=== PATIENT | male | born 1970 | race Caucasian/White ===

== ENCOUNTER 2021-01-30 12:41 | Inpatient (IN) | payer OTHER, SELFPAY ==
[~2021-01-30] VITALS: Ht 165.1 cm; Wt 78.0 kg
[2021-01-30] MEDS ORDERED: LevETIRAcetam 1,000 MG in DEXTROSE 5%-WATER 100 ML IV ONE (13:15)
[2021-01-30 13:45] LABS: BASOPHILS % (AUTO) 0.6 % (0.0-2.0); EOSINOPHILS % (AUTO) 0 % (1.0-6.0); HEMATOCRIT 43.4 % (41-53); HEMOGLOBIN 14.5 g/dL (13.5-17.5); LYMPHOCYTES # (AUTO) 0.4 K/uL (1.0-4.8); LYMPHOCYTES % (AUTO) 5.5 % (22.0-44.0); MEAN CORPUSCULAR HEMOGLOBIN 30.6 pg (26.0-34.0); MEAN CORPUSCULAR HGB CONC 33.3 G/dL (31.0-37.0); MEAN CORPUSCULAR VOLUME 92 fL (80-100); MONOCYTES # (AUTO) 0.2 K/uL (0.1-1.0); MONOCYTES % (AUTO) 2.8 % (2.0-9.0); NEUTROPHILS # (AUTO) 6.8 K/uL (1.8-7.7); PLATELET COUNT (AUTO) 122 K/uL (150-450); RED BLOOD CELL COUNT(AUTO) 4.72 MIL/uL (4.50-5.90); RED CELL DISTRIBUTION WIDTH 13.3 % (11.5-14.5)
[2021-01-30] MEDS ORDERED: IVERMECTIN 3 MG TABLET PO ONE (13:45)
[2021-01-30] MEDS ORDERED: ZINC SULFATE 220 MG CAPSULE PO ONE (13:45)
[2021-01-30] MEDS ORDERED: BUDESONIDE 180 MCG/INH INHALER [120] IH ONE (13:45)
[2021-01-30] MEDS ORDERED: AZITHROMYCIN 500 MG/NS 250 ML IV ONE (13:45)
[2021-01-30] MEDS ORDERED: DEXAMETHASONE SOD PHOS 4 MG/ML 5 ML VIAL IVP ONE (13:45)
[2021-01-30] MEDS ORDERED: DEXAMETHASONE SOD PHOS 4 MG/ML 5 ML VIAL IM ONE (13:45)
[2021-01-30 13:49] LABS: NEUTROPHILS % (AUTO) 91.1 % (40.0-70.0)
[2021-01-30 14:08] LABS: ANION GAP 11 mmol/L (8-16); CARBON DIOXIDE 25 mmol/L (22-29); CHLORIDE 100 mmol/L (98-107); CREATININE 1.05 mg/dL (0.60-1.30); GLOMERULAR FILTR. RATE CALC > 60 mL/min (>60); GLUCOSE,RANDOM 163 mg/dL (70-110); POTASSIUM 3.9 mmol/L (3.5-5.1); SODIUM SERUM 136 mmol/L (136-145); UREA NITROGEN, BLOOD 12 mg/dL (7-18)
[2021-01-30 14:23] LABS: B-TYPE NATRIURETIC PEPTIDE 55 pg/mL (0-100)
[2021-01-30 14:46] LABS: ABG A-A DIFF O2 87.9 mmHg (10-20.0); ABG BASE EXCESS -2.8 mmol/L (-2.0-3.0); ABG CARBOXYHEMOGLOBIN 0.1 % (0.0-1.5); ABG HCO3 22.8 mmol/L (22.0-26.0); ABG METHEMOGLOBIN 0.1 % (0.0-1.5); ABG OXYGEN CONTENT 19.9 mL/dL (15.0-23.0); ABG OXYGEN SATURATION 94.8 % (95.0-98.0); ABG OXYHEMOGLOBIN 94.6 % (94.0-100.0); ABG PCO2 33 mmHg (35-45); ABG PH 7.427 (7.35-7.450); O2 DEVICE,BLOOD GAS CANNULA (ROOM AIR); SITE, BLOOD GAS RT RADIAL; SOURCE, BLOOD GAS ARTERIAL; TEMPERATURE, FAHRENHEIT, BG 99.2 FAHREN (96.0-98.6)
[2021-01-30 15:01] LABS: LACTIC ACID 2.1 mmol/L (0.4-2.0)
[2021-01-30 15:09] LABS: ALANINE AMINOTRANSFERASE 34 U/L (12-78); ALBUMIN 3.3 g/dL (3.4-5.0); ALKALINE PHOSPHATASE 53 U/L (46-116); ASPARTATE AMINOTRANSFERASE 27 U/L (15-37); BILIRUBIN,TOTAL 0.4 mg/dL (0.1-1.0); CREATINE KINASE, TOTAL ONLY 220 U/L (39-308); TOTAL PROTEIN, SERUM 7.6 g/dL (6.4-8.2)
[2021-01-30 15:31] LABS: COVID AG,FIA SOURCE NASOPHARYNGEAL
[2021-01-30 15:44] LABS: D-DIMER 0.44 mg/L FEU (0.00-0.50); INR 1.1 (0.9-1.1); PROTHROMBIN TIME 11.4 SEC (9.4-11.6)
[2021-01-30 16:06] LABS: C-REACTIVE PROTEIN QUANT 16.41 mg/dL (0.00-0.30)
[2021-01-30] MEDS ORDERED: 0.9% SODIUM CHLORIDE 10 ML SYRINGE IVP PRN (16:45)
[2021-01-30] MEDS ORDERED: ACETAMINOPHEN 325 MG TABLET PO PRN (16:45)
[2021-01-30 16:51] LABS: FERRITIN 1402 ng/mL (26-388)
[2021-01-30 17:00] LABS: APPEARANCE,URINE CLEAR (CLEAR); BILIRUBIN,URINE NEGATIVE (NEGATIVE); GLUCOSE, URINE (UA) NEGATIVE (NEGATIVE); KETONES,URINE 40 mg/dL (NEGATIVE); LEUKOCYTE ESTERASE ,URINE NEGATIVE (NEGATIVE); NITRATE,URINE NEGATIVE (NEGATIVE); OCCULT BLOOD,URINE TRACE (NEGATIVE); PH,URINE 6.5 (5.0-8.0); PROTEIN,URINE POS 1+ (NEGATIVE); UROBILINOGEN,URINE 0.2 mg/dL (<=1.0)
[2021-01-30 17:24] LABS: BACTERIA,URINE Rare /HPF (None Seen); SQUAMOUS EPITHELIAL CELL,UR Rare /LPF (None Seen); WBC,URINE 0-2 /HPF (0-5)
[2021-01-30] MEDS ORDERED: REMDESIVIR 200 MG in SODIUM CHLORIDE 0.9% 250 ML IV ONE (19:00)
[2021-01-30] MEDS ORDERED: ALBUTEROL SULFATE HFA 90 MCG/PUFF 8 GM INHALER IH PRN (19:00)
[2021-01-30] MEDS: DOCUSATE SODIUM 100 MG CAPSULE PO SCH (21:00)
[2021-01-31] MEDS: HEPARIN SODIUM,PORCINE 5,000 UNITS/ML VIAL SQ SCH ×4 (00:10→23:35)
[2021-01-31] MEDS: BENZONATATE 100 MG CAPSULE PO PRN ×2 (00:10→20:59)
[2021-01-31] MEDS: FAMOTIDINE 20 MG TABLET PO SCH (08:18)
[2021-01-31] MEDS: DEXAMETHASONE 4 MG TABLET PO SCH (08:18)
[2021-01-31] MEDS: DOCUSATE SODIUM 100 MG CAPSULE PO SCH ×2 (08:18→20:47)
[2021-01-31 10:20] VITALS: BP 125/74
[2021-01-31 13:19] VITALS: BP 116/76
[2021-01-31 16:25] VITALS: BP 130/75
[2021-01-31] MEDS ORDERED: SODIUM CHLORIDE 0.9% 250 ML IV ONE (18:15)
[2021-01-31] MEDS: REMDESIVIR 100 MG in SODIUM CHLORIDE 0.9% 250 ML IV SCH (18:29)
[2021-01-31 19:48] VITALS: BP 118/76
[2021-02-01] VITALS (7 sets, daily range): BP systolic 105–126; BP diastolic 70–82
[2021-02-01] MEDS: FAMOTIDINE 20 MG TABLET PO SCH (09:09)
[2021-02-01] MEDS: DOCUSATE SODIUM 100 MG CAPSULE PO SCH ×2 (09:09→19:49)
[2021-02-01] MEDS: HEPARIN SODIUM,PORCINE 5,000 UNITS/ML VIAL SQ SCH ×2 (09:09→16:29)
[2021-02-01] MEDS: DEXAMETHASONE 4 MG TABLET PO SCH (09:09)
[2021-02-01 15:23] LABS: ALANINE AMINOTRANSFERASE 39 U/L (12-78); ALBUMIN 2.9 g/dL (3.4-5.0); ALKALINE PHOSPHATASE 55 U/L (46-116); ANION GAP 10 mmol/L (8-16); ASPARTATE AMINOTRANSFERASE 29 U/L (15-37); BILIRUBIN,TOTAL 0.3 mg/dL (0.1-1.0); CALCIUM, TOTAL 8.6 mg/dL (8.8-10.5); CARBON DIOXIDE 23 mmol/L (22-29); CHLORIDE 101 mmol/L (98-107); GLOMERULAR FILTR. RATE CALC > 60 mL/min (>60); GLUCOSE,RANDOM 247 mg/dL (70-110); POTASSIUM 4.4 mmol/L (3.5-5.1); SODIUM SERUM 134 mmol/L (136-145); TOTAL PROTEIN, SERUM 7.2 g/dL (6.4-8.2); UREA NITROGEN, BLOOD 21 mg/dL (7-18)
[2021-02-01] MEDS: REMDESIVIR 100 MG in SODIUM CHLORIDE 0.9% 250 ML IV SCH (18:13)
[2021-02-01] MEDS ORDERED: SODIUM CHLORIDE 0.9% 500 ML IV ONE (19:45)
[2021-02-02] MEDS: HEPARIN SODIUM,PORCINE 5,000 UNITS/ML VIAL SQ SCH ×3 (00:08→16:02)
[2021-02-02 03:58] VITALS: BP 115/73
[2021-02-02 07:07] VITALS: BP 127/62
[2021-02-02] MEDS: DEXAMETHASONE 4 MG TABLET PO SCH (08:33)
[2021-02-02] MEDS: DOCUSATE SODIUM 100 MG CAPSULE PO SCH ×2 (08:33→21:51)
[2021-02-02] MEDS: FAMOTIDINE 20 MG TABLET PO SCH (08:33)
[2021-02-02 08:51] LABS: ALANINE AMINOTRANSFERASE 43 U/L (12-78); ALBUMIN 2.8 g/dL (3.4-5.0); ALKALINE PHOSPHATASE 62 U/L (46-116); ANION GAP 12 mmol/L (8-16); ASPARTATE AMINOTRANSFERASE 29 U/L (15-37); BILIRUBIN,TOTAL 0.3 mg/dL (0.1-1.0); CALCIUM, TOTAL 8.2 mg/dL (8.8-10.5); CARBON DIOXIDE 26 mmol/L (22-29); CHLORIDE 102 mmol/L (98-107); CREATININE 0.78 mg/dL (0.60-1.30); GLOMERULAR FILTR. RATE CALC > 60 mL/min (>60); GLUCOSE,RANDOM 136 mg/dL (70-110); POTASSIUM 4.4 mmol/L (3.5-5.1); SODIUM SERUM 140 mmol/L (136-145); TOTAL PROTEIN, SERUM 7.1 g/dL (6.4-8.2); UREA NITROGEN, BLOOD 23 mg/dL (7-18)
[2021-02-02 11:35] VITALS: BP 124/68
[2021-02-02 14:29] VITALS: BP 126/78
[2021-02-02] MEDS: REMDESIVIR 100 MG in SODIUM CHLORIDE 0.9% 250 ML IV SCH (18:35)
[2021-02-02] MEDS: AZITHROMYCIN 500 MG/NS 250 ML IV SCH (19:00)
[2021-02-02 19:39] VITALS: BP 119/72
[2021-02-02] MEDS: CHOLECALCIFEROL (VIT D3) 2,000 UNITS [50 MCG] TABLET PO SCH (21:00)
[2021-02-03] VITALS: BP 119/74
[2021-02-03] MEDS: HEPARIN SODIUM,PORCINE 5,000 UNITS/ML VIAL SQ SCH ×3 (00:26→16:45)
[2021-02-03 04:00] VITALS: BP 110/64
[2021-02-03 08:00] VITALS: BP 111/69
[2021-02-03] MEDS: DOCUSATE SODIUM 100 MG CAPSULE PO SCH ×2 (10:04→20:53)
[2021-02-03] MEDS: CHOLECALCIFEROL (VIT D3) 2,000 UNITS [50 MCG] TABLET PO SCH (10:05)
[2021-02-03] MEDS: FAMOTIDINE 20 MG TABLET PO SCH (10:05)
[2021-02-03] MEDS: DEXAMETHASONE 2 MG TABLET PO SCH (10:06)
[2021-02-03 10:36] LABS: ALANINE AMINOTRANSFERASE 44 U/L (12-78); ALBUMIN 2.8 g/dL (3.4-5.0); ALKALINE PHOSPHATASE 56 U/L (46-116); ANION GAP 13 mmol/L (8-16); ASPARTATE AMINOTRANSFERASE 24 U/L (15-37); BILIRUBIN,TOTAL 0.5 mg/dL (0.1-1.0); CALCIUM, TOTAL 8.3 mg/dL (8.8-10.5); CARBON DIOXIDE 24 mmol/L (22-29); CHLORIDE 101 mmol/L (98-107); CREATININE 0.83 mg/dL (0.60-1.30); GLOMERULAR FILTR. RATE CALC > 60 mL/min (>60); GLUCOSE,RANDOM 152 mg/dL (70-110); POTASSIUM 4.2 mmol/L (3.5-5.1); SODIUM SERUM 138 mmol/L (136-145); TOTAL PROTEIN, SERUM 6.7 g/dL (6.4-8.2); UREA NITROGEN, BLOOD 20 mg/dL (7-18)
[2021-02-03 12:00] VITALS: BP 116/68
[2021-02-03 16:00] VITALS: BP 106/64
[2021-02-03 20:01] VITALS: BP 107/68
[2021-02-03] MEDS: AZITHROMYCIN 500 MG/NS 250 ML IV SCH (20:53)
[2021-02-03] MEDS: REMDESIVIR 100 MG in SODIUM CHLORIDE 0.9% 250 ML IV SCH (20:53)
[2021-02-03] MEDS ORDERED: SODIUM CHLORIDE 0.9% 250 ML IV ONE (21:41)
[2021-02-03] MEDS: ETHYL ALCOHOL 62% ANTISEPTIC NASAL INHALANT 0.6 ML AMPUL NASAL SCH (23:00)
[2021-02-04 00:07] VITALS: BP 104/68
[2021-02-04] MEDS: HEPARIN SODIUM,PORCINE 5,000 UNITS/ML VIAL SQ SCH ×3 (00:19→17:47)
[2021-02-04 04:02] VITALS: BP 90/64
[2021-02-04 05:54] LABS: ANION GAP 7 mmol/L (8-16); C-REACTIVE PROTEIN QUANT 9.02 mg/dL (0.00-0.30); CALCIUM, TOTAL 8.2 mg/dL (8.8-10.5); CARBON DIOXIDE 24 mmol/L (22-29); CHLORIDE 103 mmol/L (98-107); CREATININE 0.72 mg/dL (0.60-1.30); GLOMERULAR FILTR. RATE CALC > 60 mL/min (>60); GLUCOSE,RANDOM 140 mg/dL (70-110); POTASSIUM 4.1 mmol/L (3.5-5.1); SODIUM SERUM 134 mmol/L (136-145); UREA NITROGEN, BLOOD 19 mg/dL (7-18)
[2021-02-04 08:02] VITALS: BP 102/59
[2021-02-04] MEDS: CHOLECALCIFEROL (VIT D3) 2,000 UNITS [50 MCG] TABLET PO SCH (08:12)
[2021-02-04] MEDS: ETHYL ALCOHOL 62% ANTISEPTIC NASAL INHALANT 0.6 ML AMPUL NASAL SCH ×2 (08:12→20:04)
[2021-02-04] MEDS: FAMOTIDINE 20 MG TABLET PO SCH (08:12)
[2021-02-04] MEDS: DOCUSATE SODIUM 100 MG CAPSULE PO SCH ×2 (08:12→20:04)
[2021-02-04] MEDS: DEXAMETHASONE 2 MG TABLET PO SCH (09:21)
[2021-02-04 12:00] VITALS: BP 114/63
[2021-02-04 16:00] VITALS: BP 117/63
[2021-02-04 20:00] VITALS: BP 96/60
[2021-02-05] VITALS: BP 99/69
[2021-02-05] MEDS: HEPARIN SODIUM,PORCINE 5,000 UNITS/ML VIAL SQ SCH ×3 (00:30→17:03)
[2021-02-05 04:00] VITALS: BP 102/74
[2021-02-05 08:00] VITALS: BP 99/59
[2021-02-05] MEDS: CHOLECALCIFEROL (VIT D3) 2,000 UNITS [50 MCG] TABLET PO SCH (08:20)
[2021-02-05] MEDS: DEXAMETHASONE 2 MG TABLET PO SCH (08:21)
[2021-02-05] MEDS: ETHYL ALCOHOL 62% ANTISEPTIC NASAL INHALANT 0.6 ML AMPUL NASAL SCH ×2 (08:21→21:53)
[2021-02-05] MEDS: FAMOTIDINE 20 MG TABLET PO SCH (08:21)
[2021-02-05] MEDS: DOCUSATE SODIUM 100 MG CAPSULE PO SCH ×2 (08:21→21:53)
[2021-02-05 12:00] VITALS: BP 107/60
[2021-02-05 16:00] VITALS: BP 119/66
[2021-02-05 20:01] VITALS: BP 128/69
[2021-02-06 00:04] VITALS: BP 106/51
[2021-02-06] MEDS: HEPARIN SODIUM,PORCINE 5,000 UNITS/ML VIAL SQ SCH ×3 (00:15→15:15)
[2021-02-06 04:01] VITALS: BP 96/59
[2021-02-06 05:35] LABS: BASOPHILS % (AUTO) 0.3 % (0.0-2.0); EOSINOPHILS % (AUTO) 0.1 % (1.0-6.0); HEMATOCRIT 46.7 % (41-53); HEMOGLOBIN 15.8 g/dL (13.5-17.5); LYMPHOCYTES # (AUTO) 0.6 K/uL (1.0-4.8); LYMPHOCYTES % (AUTO) 4.4 % (22.0-44.0); MEAN CORPUSCULAR HEMOGLOBIN 30.8 pg (26.0-34.0); MEAN CORPUSCULAR HGB CONC 33.8 G/dL (31.0-37.0); MEAN CORPUSCULAR VOLUME 91 fL (80-100); MONOCYTES # (AUTO) 0.8 K/uL (0.1-1.0); MONOCYTES % (AUTO) 5.7 % (2.0-9.0); NEUTROPHILS # (AUTO) 12.9 K/uL (1.8-7.7); PLATELET COUNT (AUTO) 350 K/uL (150-450); RED BLOOD CELL COUNT(AUTO) 5.12 MIL/uL (4.50-5.90); RED CELL DISTRIBUTION WIDTH 13.2 % (11.5-14.5)
[2021-02-06 05:42] LABS: NEUTROPHILS % (AUTO) 89.5 % (40.0-70.0)
[2021-02-06 05:53] LABS: ALANINE AMINOTRANSFERASE 34 U/L (12-78); ALBUMIN 2.7 g/dL (3.4-5.0); ALKALINE PHOSPHATASE 64 U/L (46-116); ANION GAP 10 mmol/L (8-16); ASPARTATE AMINOTRANSFERASE 18 U/L (15-37); BILIRUBIN,TOTAL 0.7 mg/dL (0.1-1.0); CALCIUM, TOTAL 8.9 mg/dL (8.8-10.5); CARBON DIOXIDE 24 mmol/L (22-29); CHLORIDE 101 mmol/L (98-107); CREATININE 0.83 mg/dL (0.60-1.30); GLOMERULAR FILTR. RATE CALC > 60 mL/min (>60); GLUCOSE,RANDOM 121 mg/dL (70-110); POTASSIUM 4.6 mmol/L (3.5-5.1); SODIUM SERUM 135 mmol/L (136-145); UREA NITROGEN, BLOOD 25 mg/dL (7-18)
[2021-02-06 08:00] VITALS: BP 103/63
[2021-02-06] MEDS: FAMOTIDINE 20 MG TABLET PO SCH (09:30)
[2021-02-06] MEDS: ETHYL ALCOHOL 62% ANTISEPTIC NASAL INHALANT 0.6 ML AMPUL NASAL SCH ×2 (09:30→21:23)
[2021-02-06] MEDS: DEXAMETHASONE 2 MG TABLET PO SCH (09:31)
[2021-02-06] MEDS: CHOLECALCIFEROL (VIT D3) 2,000 UNITS [50 MCG] TABLET PO SCH (09:32)
[2021-02-06] MEDS: DOCUSATE SODIUM 100 MG CAPSULE PO SCH ×2 (09:33→21:23)
[2021-02-06 12:00] VITALS: BP 98/47
[2021-02-06 16:00] VITALS: BP 110/62
[2021-02-06 20:01] VITALS: BP 107/70
[2021-02-07 00:01] VITALS: BP 93/66
[2021-02-07] MEDS: HEPARIN SODIUM,PORCINE 5,000 UNITS/ML VIAL SQ SCH ×3 (00:08→15:13)
[2021-02-07 04:02] VITALS: BP 120/92
[2021-02-07 08:00] VITALS: BP 86/90
[2021-02-07] MEDS: FAMOTIDINE 20 MG TABLET PO SCH (08:58)
[2021-02-07] MEDS: DEXAMETHASONE 2 MG TABLET PO SCH (08:58)
[2021-02-07] MEDS: CHOLECALCIFEROL (VIT D3) 2,000 UNITS [50 MCG] TABLET PO SCH (08:58)
[2021-02-07] MEDS: DOCUSATE SODIUM 100 MG CAPSULE PO SCH ×2 (08:58→21:00)
[2021-02-07] MEDS: ETHYL ALCOHOL 62% ANTISEPTIC NASAL INHALANT 0.6 ML AMPUL NASAL SCH ×2 (08:59→21:07)
[2021-02-07 12:00] VITALS: BP 105/57
[2021-02-07] MEDS ORDERED: SODIUM CHLORIDE 0.9% 500 ML IV ONE (14:59)
[2021-02-07 16:00] VITALS: BP 100/49
[2021-02-07 20:00] VITALS: BP 94/65
[2021-02-08] VITALS: BP 89/53
[2021-02-08] MEDS: HEPARIN SODIUM,PORCINE 5,000 UNITS/ML VIAL SQ SCH ×3 (00:32→16:19)
[2021-02-08 04:00] VITALS: BP 99/60
[2021-02-08 08:00] VITALS: BP 105/61
[2021-02-08] MEDS: DOCUSATE SODIUM 100 MG CAPSULE PO SCH ×2 (08:17→20:20)
[2021-02-08] MEDS: ETHYL ALCOHOL 62% ANTISEPTIC NASAL INHALANT 0.6 ML AMPUL NASAL SCH ×2 (08:17→20:19)
[2021-02-08] MEDS: FAMOTIDINE 20 MG TABLET PO SCH (08:17)
[2021-02-08] MEDS: DEXAMETHASONE 2 MG TABLET PO SCH (08:17)
[2021-02-08] MEDS: CHOLECALCIFEROL (VIT D3) 2,000 UNITS [50 MCG] TABLET PO SCH (08:18)
[2021-02-08] MEDS ORDERED: ETOMIDATE 2 MG/ML 10 ML VIAL ONE (10:37)
[2021-02-08] MEDS ORDERED: ETOMIDATE 2 MG/ML 10 ML VIAL IVP ONE (10:45)
[2021-02-08] MEDS ORDERED: ROCURONIUM BROMIDE 10 MG/ML 5 ML VIAL IVP ONE (10:45)
[2021-02-08] MEDS: FentaNYL CIT 1000MCG/0.9% NACL 100 ML IV PRN ×2 (10:54→15:36)
[2021-02-08] MEDS: PROPOFOL 1000 MG/ISO-OSM 100 ML IV PRN ×3 (10:54→20:19)
[2021-02-08 12:00] VITALS: BP 105/63
[2021-02-08] MEDS ORDERED: CISATRACURIUM BESYLATE 2 MG/ML 10 ML VIAL IVP ONE (13:15)
[2021-02-08] MEDS ORDERED: MIDAZOLAM HCL 100 MG in SODIUM CHLORIDE 0.9% 180 ML IV PRN (13:15)
[2021-02-08] MEDS ORDERED: RINGERS SOLUTION,LACTATED 1,000 ML IV SCH (14:11)
[2021-02-08] MEDS ORDERED: RINGERS SOLUTION,LACTATED 1,000 ML IV ONE (14:15)
[2021-02-08] MEDS: CISATRACURIUM BESYLATE 100 MG in DEXTROSE 5%-WATER 240 ML IV PRN ×2 (14:40→20:53)
[2021-02-08 14:58] LABS: ANION GAP 6 mmol/L (8-16); C-REACTIVE PROTEIN QUANT 9.55 mg/dL (0.00-0.30); CALCIUM, TOTAL 8.4 mg/dL (8.8-10.5); CARBON DIOXIDE 26 mmol/L (22-29); CHLORIDE 98 mmol/L (98-107); CREATININE 1.12 mg/dL (0.60-1.30); GLOMERULAR FILTR. RATE CALC > 60 mL/min (>60); GLUCOSE,RANDOM 197 mg/dL (70-110); POTASSIUM 4.4 mmol/L (3.5-5.1); SODIUM SERUM 130 mmol/L (136-145); UREA NITROGEN, BLOOD 26 mg/dL (7-18)
[2021-02-08 16:00] VITALS: BP 89/57
[2021-02-08] MEDS ORDERED: TOCILIZUMAB 600 MG in SODIUM CHLORIDE 0.9% 70 ML IV ONE (16:00)
[2021-02-08 16:12] LABS: ABG A-A DIFF O2 573.2 mmHg (10-20.0); ABG BASE EXCESS -0.9 mmol/L (-2.0-3.0); ABG CARBOXYHEMOGLOBIN 0.5 % (0.0-1.5); ABG HCO3 22.6 mmol/L (22.0-26.0); ABG METHEMOGLOBIN 0.3 % (0.0-1.5); ABG OXYGEN CONTENT 20.7 mL/dL (15.0-23.0); ABG OXYHEMOGLOBIN 93.2 % (94.0-100.0); ABG PCO2 59 mmHg (35-45); ABG PH 7.263 (7.35-7.450); ABG TOTAL HEMOGLOBIN 15.8 G/dL (12.0-18.0); PO2, ARTERIAL BG 80.1 mmHg (84.0-92.0); SOURCE, BLOOD GAS ARTERIAL
[2021-02-08 16:13] LABS: O2 DEVICE,BLOOD GAS VENTILATOR (ROOM AIR); PEEP,BG 10 cm H2O; SITE, BLOOD GAS RT RADIAL; VT, ABG 400 ml
[2021-02-08 20:01] VITALS: BP 84/54
[2021-02-08] MEDS: NOREPINEPHRINE 4 MG/D5%-WATER 250 ML IV PRN (20:54)
[2021-02-09 00:03] VITALS: BP 109/76
[2021-02-09] MEDS ORDERED: SODIUM CHLORIDE 0.9% 250 ML IV ONE ×2 (00:24→20:57)
[2021-02-09] MEDS: HEPARIN SODIUM,PORCINE 5,000 UNITS/ML VIAL SQ SCH ×3 (00:26→16:02)
[2021-02-09] MEDS: FentaNYL CIT 1000MCG/0.9% NACL 100 ML IV PRN ×2 (02:52→14:35)
[2021-02-09 04:02] VITALS: BP 104/68
[2021-02-09 05:14] LABS: BASOPHILS % (AUTO) 0.2 % (0.0-2.0); EOSINOPHILS % (AUTO) 0.7 % (1.0-6.0); HEMOGLOBIN 14.9 g/dL (13.5-17.5); LYMPHOCYTES # (AUTO) 0.8 K/uL (1.0-4.8); LYMPHOCYTES % (AUTO) 4.1 % (22.0-44.0); MEAN CORPUSCULAR HEMOGLOBIN 30.6 pg (26.0-34.0); MEAN CORPUSCULAR HGB CONC 33.1 G/dL (31.0-37.0); MEAN CORPUSCULAR VOLUME 92 fL (80-100); MONOCYTES # (AUTO) 0.7 K/uL (0.1-1.0); MONOCYTES % (AUTO) 3.4 % (2.0-9.0); NEUTROPHILS # (AUTO) 17.5 K/uL (1.8-7.7); PLATELET COUNT (AUTO) 306 K/uL (150-450); RED BLOOD CELL COUNT(AUTO) 4.87 MIL/uL (4.50-5.90); RED CELL DISTRIBUTION WIDTH 13.3 % (11.5-14.5)
[2021-02-09 05:42] LABS: ALANINE AMINOTRANSFERASE 24 U/L (12-78); ALKALINE PHOSPHATASE 82 U/L (46-116); ANION GAP 5 mmol/L (8-16); ASPARTATE AMINOTRANSFERASE 22 U/L (15-37); BILIRUBIN,TOTAL 0.6 mg/dL (0.1-1.0); C-REACTIVE PROTEIN QUANT 19.28 mg/dL (0.00-0.30); CARBON DIOXIDE 26 mmol/L (22-29); CHLORIDE 99 mmol/L (98-107); CREATININE 0.82 mg/dL (0.60-1.30); GLOMERULAR FILTR. RATE CALC > 60 mL/min (>60); GLUCOSE,RANDOM 194 mg/dL (70-110); POTASSIUM 4.6 mmol/L (3.5-5.1); SODIUM SERUM 130 mmol/L (136-145); TOTAL PROTEIN, SERUM 6.3 g/dL (6.4-8.2); UREA NITROGEN, BLOOD 19 mg/dL (7-18)
[2021-02-09 05:54] LABS: NEUTROPHILS % (AUTO) 91.6 % (40.0-70.0)
[2021-02-09] MEDS: PROPOFOL 1000 MG/ISO-OSM 100 ML IV PRN ×3 (06:35→23:43)
[2021-02-09] MEDS: CISATRACURIUM BESYLATE 100 MG in DEXTROSE 5%-WATER 240 ML IV PRN ×2 (07:34→19:41)
[2021-02-09 08:00] VITALS: BP 102/70
[2021-02-09] MEDS: DEXAMETHASONE SOD PHOS 4 MG/ML VIAL IVP SCH (08:34)
[2021-02-09] MEDS: DOCUSATE SODIUM 100 MG CAPSULE PO SCH ×2 (08:35→21:02)
[2021-02-09] MEDS: ETHYL ALCOHOL 62% ANTISEPTIC NASAL INHALANT 0.6 ML AMPUL NASAL SCH ×2 (08:35→21:02)
[2021-02-09] MEDS: CHOLECALCIFEROL (VIT D3) 2,000 UNITS [50 MCG] TABLET PO SCH (08:35)
[2021-02-09] MEDS: FAMOTIDINE 10 MG/ML 2 ML VIAL IVP SCH (08:35)
[2021-02-09] MEDS ORDERED: RINGERS SOLUTION,LACTATED 1,000 ML IV ONE ×2 (10:15→11:30)
[2021-02-09 12:00] VITALS: BP 105/56
[2021-02-09] MEDS: THIAMINE 100 MG/ML 2 ML VIAL IVP SCH (12:27)
[2021-02-09 16:00] VITALS: BP 116/65
[2021-02-09 20:01] VITALS: BP 115/72
[2021-02-10 00:06] VITALS: BP 100/67
[2021-02-10] MEDS: ACETAMINOPHEN 325 MG TABLET PO PRN ×2 (00:19→15:15)
[2021-02-10] MEDS: HEPARIN SODIUM,PORCINE 5,000 UNITS/ML VIAL SQ SCH ×3 (00:20→15:15)
[2021-02-10] MEDS: FentaNYL CIT 1000MCG/0.9% NACL 100 ML IV PRN ×2 (00:20→10:59)
[2021-02-10 04:03] VITALS: BP 99/66
[2021-02-10 04:55] LABS: BASOPHILS % (AUTO) 0.7 % (0.0-2.0); EOSINOPHILS % (AUTO) 0.1 % (1.0-6.0); HEMATOCRIT 47.6 % (41-53); HEMOGLOBIN 15.6 g/dL (13.5-17.5); LYMPHOCYTES # (AUTO) 0.5 K/uL (1.0-4.8); LYMPHOCYTES % (AUTO) 2.3 % (22.0-44.0); MEAN CORPUSCULAR HEMOGLOBIN 30.2 pg (26.0-34.0); MEAN CORPUSCULAR HGB CONC 32.7 G/dL (31.0-37.0); MEAN CORPUSCULAR VOLUME 92 fL (80-100); MONOCYTES # (AUTO) 0.9 K/uL (0.1-1.0); MONOCYTES % (AUTO) 3.8 % (2.0-9.0); NEUTROPHILS # (AUTO) 21.6 K/uL (1.8-7.7); PLATELET COUNT (AUTO) 273 K/uL (150-450); RED BLOOD CELL COUNT(AUTO) 5.15 MIL/uL (4.50-5.90); RED CELL DISTRIBUTION WIDTH 13.1 % (11.5-14.5)
[2021-02-10 05:06] LABS: NEUTROPHILS % (AUTO) 93.1 % (40.0-70.0)
[2021-02-10 05:15] LABS: ANION GAP 0 mmol/L (8-16); C-REACTIVE PROTEIN QUANT 10.71 mg/dL (0.00-0.30); CALCIUM, TOTAL 8.3 mg/dL (8.8-10.5); CARBON DIOXIDE 30 mmol/L (22-29); CHLORIDE 96 mmol/L (98-107); CREATININE 0.73 mg/dL (0.60-1.30); GLOMERULAR FILTR. RATE CALC > 60 mL/min (>60); GLUCOSE,RANDOM 213 mg/dL (70-110); POTASSIUM 5.2 mmol/L (3.5-5.1); SODIUM SERUM 126 mmol/L (136-145); UREA NITROGEN, BLOOD 23 mg/dL (7-18)
[2021-02-10] MEDS: PROPOFOL 1000 MG/ISO-OSM 100 ML IV PRN ×2 (05:48→15:16)
[2021-02-10] MEDS: NOREPINEPHRINE 4 MG/D5%-WATER 250 ML IV PRN (05:49)
[2021-02-10] MEDS: CISATRACURIUM BESYLATE 100 MG in DEXTROSE 5%-WATER 240 ML IV PRN ×2 (06:56→18:22)
[2021-02-10 08:00] VITALS: BP 102/62
[2021-02-10] MEDS: DOCUSATE SODIUM 100 MG CAPSULE PO SCH ×2 (10:24→22:12)
[2021-02-10] MEDS: CHOLECALCIFEROL (VIT D3) 2,000 UNITS [50 MCG] TABLET PO SCH (10:24)
[2021-02-10] MEDS: THIAMINE 100 MG/ML 2 ML VIAL IVP SCH (10:24)
[2021-02-10] MEDS: FAMOTIDINE 10 MG/ML 2 ML VIAL IVP SCH (10:24)
[2021-02-10] MEDS: DEXAMETHASONE SOD PHOS 4 MG/ML VIAL IVP SCH (10:25)
[2021-02-10] MEDS: MULTIVITAMINS, THERAPEUTIC 15 ML UDCUP NG SCH (10:26)
[2021-02-10] MEDS: ETHYL ALCOHOL 62% ANTISEPTIC NASAL INHALANT 0.6 ML AMPUL NASAL SCH ×2 (10:26→22:14)
[2021-02-10 12:00] VITALS: BP 132/88
[2021-02-10 16:00] VITALS: BP 102/62
[2021-02-11] MEDS: HEPARIN SODIUM,PORCINE 5,000 UNITS/ML VIAL SQ SCH ×3 (00:01→15:35)
[2021-02-11 00:53] VITALS: BP 99/65
[2021-02-11 04:38] VITALS: BP 121/77
[2021-02-11 06:00] LABS: BASOPHILS % (AUTO) 0.4 % (0.0-2.0); EOSINOPHILS % (AUTO) 0.3 % (1.0-6.0); HEMATOCRIT 47.4 % (41-53); HEMOGLOBIN 15.4 g/dL (13.5-17.5); LYMPHOCYTES # (AUTO) 0.7 K/uL (1.0-4.8); MEAN CORPUSCULAR HEMOGLOBIN 29.9 pg (26.0-34.0); MEAN CORPUSCULAR HGB CONC 32.5 G/dL (31.0-37.0); MEAN CORPUSCULAR VOLUME 92 fL (80-100); MONOCYTES # (AUTO) 1.4 K/uL (0.1-1.0); MONOCYTES % (AUTO) 5.9 % (2.0-9.0); NEUTROPHILS # (AUTO) 21.2 K/uL (1.8-7.7); PLATELET COUNT (AUTO) 206 K/uL (150-450); RED BLOOD CELL COUNT(AUTO) 5.16 MIL/uL (4.50-5.90); RED CELL DISTRIBUTION WIDTH 13.3 % (11.5-14.5)
[2021-02-11 06:02] LABS: APPEARANCE,URINE TURBID (CLEAR); BILIRUBIN,URINE NEGATIVE (NEGATIVE); GLUCOSE, URINE (UA) 100 mg/dL (NEGATIVE); KETONES,URINE NEGATIVE (NEGATIVE); LEUKOCYTE ESTERASE ,URINE NEGATIVE (NEGATIVE); NITRATE,URINE NEGATIVE (NEGATIVE); OCCULT BLOOD,URINE NEGATIVE (NEGATIVE); PH,URINE 6.5 (5.0-8.0); PROTEIN,URINE NEGATIVE (NEGATIVE)
[2021-02-11 06:17] LABS: ANION GAP 2 mmol/L (8-16); CALCIUM, TOTAL 8.3 mg/dL (8.8-10.5); CARBON DIOXIDE 31 mmol/L (22-29); CHLORIDE 95 mmol/L (98-107); CREATININE 0.68 mg/dL (0.60-1.30); GLOMERULAR FILTR. RATE CALC > 60 mL/min (>60); GLUCOSE,RANDOM 181 mg/dL (70-110); POTASSIUM 5.2 mmol/L (3.5-5.1); SODIUM SERUM 128 mmol/L (136-145); UREA NITROGEN, BLOOD 19 mg/dL (7-18)
[2021-02-11 06:25] LABS: NEUTROPHILS % (AUTO) 90.4 % (40.0-70.0)
[2021-02-11 06:41] LABS: BACTERIA,URINE Few /HPF (None Seen); RBC,URINE 0-2 /HPF (0-2); TRIPLE PHOSPHATE CRYSTAL,UR Few /LPF (None Seen); URIC ACID CRYSTALS,URINE Few /LPF (None Seen); WBC,URINE 0-2 /HPF (0-5)
[2021-02-11] MEDS: CISATRACURIUM BESYLATE 100 MG in DEXTROSE 5%-WATER 240 ML IV PRN ×3 (07:31→18:32)
[2021-02-11 08:00] VITALS: BP 117/79
[2021-02-11] MEDS: THIAMINE 100 MG/ML 2 ML VIAL IVP SCH (09:23)
[2021-02-11] MEDS: FAMOTIDINE 10 MG/ML 2 ML VIAL IVP SCH (09:23)
[2021-02-11] MEDS: DEXAMETHASONE SOD PHOS 4 MG/ML VIAL IVP SCH (09:24)
[2021-02-11] MEDS: DOCUSATE SODIUM 100 MG CAPSULE PO SCH ×2 (09:24→21:39)
[2021-02-11] MEDS: CHOLECALCIFEROL (VIT D3) 2,000 UNITS [50 MCG] TABLET PO SCH (09:24)
[2021-02-11] MEDS: ETHYL ALCOHOL 62% ANTISEPTIC NASAL INHALANT 0.6 ML AMPUL NASAL SCH ×2 (09:24→21:38)
[2021-02-11] MEDS: MULTIVITAMINS, THERAPEUTIC 15 ML UDCUP NG SCH (09:25)
[2021-02-11] MEDS: FentaNYL CIT 1000MCG/0.9% NACL 100 ML IV PRN ×2 (09:43→17:59)
[2021-02-11] MEDS: NOREPINEPHRINE 4 MG/D5%-WATER 250 ML IV PRN (10:50)
[2021-02-11] MEDS: PROPOFOL 1000 MG/ISO-OSM 100 ML IV PRN (12:51)
[2021-02-11 13:59] LABS: ABG A-A DIFF O2 330.5 mmHg (10-20.0); ABG BASE EXCESS 7.5 mmol/L (-2.0-3.0); ABG CARBOXYHEMOGLOBIN 0.7 % (0.0-1.5); ABG HCO3 30.3 mmol/L (22.0-26.0); ABG METHEMOGLOBIN 0.3 % (0.0-1.5); ABG OXYGEN CONTENT 18.5 mL/dL (15.0-23.0); ABG OXYGEN SATURATION 87.4 % (95.0-98.0); ABG OXYHEMOGLOBIN 86.5 % (94.0-100.0); ABG PCO2 43 mmHg (35-45); ABG PH 7.474 (7.35-7.450); ABG TOTAL HEMOGLOBIN 15.3 G/dL (12.0-18.0); SOURCE, BLOOD GAS ARTERIAL; TEMPERATURE, FAHRENHEIT, BG 99.3 FAHREN (96.0-98.6)
[2021-02-11 14:00] LABS: O2 DEVICE,BLOOD GAS VENTILATOR (ROOM AIR); SITE, BLOOD GAS LFT RADIAL
[2021-02-11 14:01] LABS: INSPIRATORY TIME, BG 0.8 SEC; PEEP,BG 10 cm H2O; SPONTANEOUS VT, BG 550 ml; VENT MODE, BG Press. Control Vent (ROOM AIR)
[2021-02-11 16:00] VITALS: BP 99/66
[2021-02-11] MEDS: CefTRIAXone SODIUM 2 GM in DEXTROSE 5%-WATER 50 ML IV SCH (16:08)
[2021-02-11] MEDS ORDERED: SODIUM CHLORIDE 0.9% 250 ML IV ONE ×2 (17:24→21:02)
[2021-02-11 20:00] VITALS: BP 141/100
[2021-02-11] MEDS ORDERED: SODIUM CHLORIDE 0.9% 500 ML IV ONE (21:03)
[2021-02-11] MEDS: ACETAMINOPHEN 325 MG TABLET PO PRN (21:39)
[2021-02-12] VITALS: BP 129/88
[2021-02-12] MEDS: HEPARIN SODIUM,PORCINE 5,000 UNITS/ML VIAL SQ SCH ×4 (00:19→23:57)
[2021-02-12] MEDS: PROPOFOL 1000 MG/ISO-OSM 100 ML IV PRN ×6 (00:20→23:56)
[2021-02-12] MEDS: CISATRACURIUM BESYLATE 100 MG in DEXTROSE 5%-WATER 240 ML IV PRN ×5 (00:21→23:55)
[2021-02-12] MEDS: NOREPINEPHRINE 4 MG/D5%-WATER 250 ML IV PRN (00:22)
[2021-02-12 04:00] VITALS: BP 123/90
[2021-02-12] MEDS: FentaNYL CIT 1000MCG/0.9% NACL 100 ML IV PRN ×3 (04:35→23:57)
[2021-02-12 05:13] LABS: BASOPHILS % (AUTO) 0.2 % (0.0-2.0); EOSINOPHILS % (AUTO) 0.1 % (1.0-6.0); HEMATOCRIT 44.8 % (41-53); HEMOGLOBIN 14.7 g/dL (13.5-17.5); LYMPHOCYTES # (AUTO) 0.6 K/uL (1.0-4.8); LYMPHOCYTES % (AUTO) 3.3 % (22.0-44.0); MEAN CORPUSCULAR HEMOGLOBIN 30.1 pg (26.0-34.0); MEAN CORPUSCULAR HGB CONC 32.8 G/dL (31.0-37.0); MEAN CORPUSCULAR VOLUME 92 fL (80-100); MONOCYTES # (AUTO) 1.2 K/uL (0.1-1.0); MONOCYTES % (AUTO) 6.2 % (2.0-9.0); NEUTROPHILS # (AUTO) 17.1 K/uL (1.8-7.7); PLATELET COUNT (AUTO) 217 K/uL (150-450); RED BLOOD CELL COUNT(AUTO) 4.88 MIL/uL (4.50-5.90); RED CELL DISTRIBUTION WIDTH 13.4 % (11.5-14.5)
[2021-02-12 05:21] LABS: NEUTROPHILS % (AUTO) 90.2 % (40.0-70.0)
[2021-02-12 05:25] LABS: ANION GAP 1 mmol/L (8-16); CALCIUM, TOTAL 7.9 mg/dL (8.8-10.5); CARBON DIOXIDE 34 mmol/L (22-29); CHLORIDE 96 mmol/L (98-107); CREATININE 0.66 mg/dL (0.60-1.30); GLOMERULAR FILTR. RATE CALC > 60 mL/min (>60); GLUCOSE,RANDOM 205 mg/dL (70-110); PHOSPHORUS 3.3 mg/dL (2.5-4.9); POTASSIUM 5.3 mmol/L (3.5-5.1); SODIUM SERUM 131 mmol/L (136-145); UREA NITROGEN, BLOOD 20 mg/dL (7-18)
[2021-02-12 08:00] VITALS: BP 131/81
[2021-02-12] MEDS: MULTIVITAMINS, THERAPEUTIC 15 ML UDCUP NG SCH (08:51)
[2021-02-12] MEDS: DOCUSATE SODIUM 100 MG CAPSULE PO SCH ×2 (08:52→20:15)
[2021-02-12] MEDS: FAMOTIDINE 10 MG/ML 2 ML VIAL IVP SCH (08:52)
[2021-02-12] MEDS: ETHYL ALCOHOL 62% ANTISEPTIC NASAL INHALANT 0.6 ML AMPUL NASAL SCH ×2 (08:52→20:15)
[2021-02-12] MEDS: THIAMINE 100 MG/ML 2 ML VIAL IVP SCH (08:52)
[2021-02-12] MEDS: DEXAMETHASONE SOD PHOS 4 MG/ML VIAL IVP SCH (08:53)
[2021-02-12] MEDS: CHOLECALCIFEROL (VIT D3) 2,000 UNITS [50 MCG] TABLET PO SCH (08:53)
[2021-02-12 12:00] VITALS: BP 126/94
[2021-02-12] MEDS: AZITHROMYCIN 500 MG/NS 250 ML IV SCH (14:43)
[2021-02-12 16:00] VITALS: BP 117/76
[2021-02-12] MEDS: CefTRIAXone SODIUM 2 GM in DEXTROSE 5%-WATER 50 ML IV SCH (16:55)
[2021-02-12 20:00] VITALS: BP 108/65
[2021-02-12] MEDS ORDERED: SODIUM CHLORIDE 0.9% 250 ML IV ONE (23:05)
[2021-02-13] VITALS: BP 101/50
[2021-02-13 04:00] VITALS: BP 145/81
[2021-02-13 05:19] LABS: BASOPHILS % (AUTO) 0.1 % (0.0-2.0); EOSINOPHILS % (AUTO) 0.5 % (1.0-6.0); HEMATOCRIT 41.8 % (41-53); HEMOGLOBIN 13.8 g/dL (13.5-17.5); LYMPHOCYTES # (AUTO) 0.6 K/uL (1.0-4.8); LYMPHOCYTES % (AUTO) 3.3 % (22.0-44.0); MEAN CORPUSCULAR HEMOGLOBIN 30.4 pg (26.0-34.0); MEAN CORPUSCULAR VOLUME 92 fL (80-100); MONOCYTES # (AUTO) 1.3 K/uL (0.1-1.0); NEUTROPHILS # (AUTO) 14.8 K/uL (1.8-7.7); PLATELET COUNT (AUTO) 174 K/uL (150-450); RED BLOOD CELL COUNT(AUTO) 4.54 MIL/uL (4.50-5.90); RED CELL DISTRIBUTION WIDTH 13.3 % (11.5-14.5)
[2021-02-13 05:30] LABS: NEUTROPHILS % (AUTO) 88.1 % (40.0-70.0)
[2021-02-13 05:33] LABS: ANION GAP 1 mmol/L (8-16); CALCIUM, TOTAL 7.7 mg/dL (8.8-10.5); CARBON DIOXIDE 35 mmol/L (22-29); CHLORIDE 97 mmol/L (98-107); GLOMERULAR FILTR. RATE CALC > 60 mL/min (>60); GLUCOSE,RANDOM 163 mg/dL (70-110); POTASSIUM 4.8 mmol/L (3.5-5.1); SODIUM SERUM 133 mmol/L (136-145); UREA NITROGEN, BLOOD 23 mg/dL (7-18)
[2021-02-13] MEDS: PROPOFOL 1000 MG/ISO-OSM 100 ML IV PRN ×5 (05:40→23:40)
[2021-02-13 06:14] LABS: PLATELET MORPHOLOGY COMMENT GIANT PLTS PRESENT
[2021-02-13 08:00] VITALS: BP 130/84
[2021-02-13] MEDS: CISATRACURIUM BESYLATE 100 MG in DEXTROSE 5%-WATER 240 ML IV PRN ×2 (08:09→16:43)
[2021-02-13] MEDS: HEPARIN SODIUM,PORCINE 5,000 UNITS/ML VIAL SQ SCH ×2 (09:22→15:21)
[2021-02-13] MEDS: DEXAMETHASONE SOD PHOS 4 MG/ML VIAL IVP SCH (09:22)
[2021-02-13] MEDS: ETHYL ALCOHOL 62% ANTISEPTIC NASAL INHALANT 0.6 ML AMPUL NASAL SCH ×2 (09:22→21:18)
[2021-02-13] MEDS: THIAMINE 100 MG/ML 2 ML VIAL IVP SCH (09:22)
[2021-02-13] MEDS: FAMOTIDINE 10 MG/ML 2 ML VIAL IVP SCH (09:22)
[2021-02-13] MEDS: CHOLECALCIFEROL (VIT D3) 2,000 UNITS [50 MCG] TABLET PO SCH (09:23)
[2021-02-13] MEDS: DOCUSATE SODIUM 100 MG CAPSULE PO SCH ×2 (09:23→21:18)
[2021-02-13] MEDS: MULTIVITAMINS, THERAPEUTIC 15 ML UDCUP NG SCH (09:23)
[2021-02-13] MEDS: FentaNYL CIT 1000MCG/0.9% NACL 100 ML IV PRN ×2 (09:25→21:18)
[2021-02-13 12:00] VITALS: BP 146/90
[2021-02-13] MEDS: ACETAMINOPHEN 325 MG TABLET PO PRN ×2 (14:21→22:42)
[2021-02-13] MEDS: AZITHROMYCIN 500 MG/NS 250 ML IV SCH (14:21)
[2021-02-13] MEDS: CefTRIAXone SODIUM 2 GM in DEXTROSE 5%-WATER 50 ML IV SCH (15:20)
[2021-02-13 16:00] VITALS: BP 117/75
[2021-02-13 18:06] LABS: S PNEUMO SOURCE Urine; STREP PNEUMONIAE AG URINE Negative (Negative)
[2021-02-13 20:00] VITALS: BP 114/70
[2021-02-13] MEDS ORDERED: *CLINICAL-RX DOSING [ENTER DRUG IN COMMENTS] CLINICAL ONE (20:00)
[2021-02-13 20:06] LABS: LEGIONELLA PNEUMO AG URINE Negative (Negative)
[2021-02-13] MEDS: ENOXAPARIN SODIUM 40 MG/0.4 ML PF SYRINGE SQ SCH (21:18)
[2021-02-13] MEDS ORDERED: SODIUM CHLORIDE 0.9% 250 ML IV ONE (22:54)
[2021-02-14] VITALS: BP 125/89
[2021-02-14] MEDS: CISATRACURIUM BESYLATE 100 MG in DEXTROSE 5%-WATER 240 ML IV PRN ×4 (00:08→18:18)
[2021-02-14 04:00] VITALS: BP 132/83
[2021-02-14] MEDS: PROPOFOL 1000 MG/ISO-OSM 100 ML IV PRN ×4 (04:57→20:22)
[2021-02-14 05:12] LABS: BASOPHILS % (AUTO) 0.1 % (0.0-2.0); EOSINOPHILS % (AUTO) 0.3 % (1.0-6.0); HEMATOCRIT 41.9 % (41-53); HEMOGLOBIN 13.7 g/dL (13.5-17.5); LYMPHOCYTES # (AUTO) 0.8 K/uL (1.0-4.8); LYMPHOCYTES % (AUTO) 4.2 % (22.0-44.0); MEAN CORPUSCULAR HEMOGLOBIN 30.4 pg (26.0-34.0); MEAN CORPUSCULAR HGB CONC 32.6 G/dL (31.0-37.0); MEAN CORPUSCULAR VOLUME 93 fL (80-100); MONOCYTES # (AUTO) 1.5 K/uL (0.1-1.0); MONOCYTES % (AUTO) 8.1 % (2.0-9.0); NEUTROPHILS # (AUTO) 15.9 K/uL (1.8-7.7); PLATELET COUNT (AUTO) 183 K/uL (150-450); RED CELL DISTRIBUTION WIDTH 13.5 % (11.5-14.5)
[2021-02-14 05:22] LABS: NEUTROPHILS % (AUTO) 87.3 % (40.0-70.0)
[2021-02-14 05:33] LABS: ALANINE AMINOTRANSFERASE 92 U/L (12-78); ALBUMIN 2.6 g/dL (3.4-5.0); ALKALINE PHOSPHATASE 90 U/L (46-116); ANION GAP 0 mmol/L (8-16); ASPARTATE AMINOTRANSFERASE 49 U/L (15-37); BILIRUBIN,TOTAL 0.9 mg/dL (0.1-1.0); C-REACTIVE PROTEIN QUANT 0.38 mg/dL (0.00-0.30); CALCIUM, TOTAL 7.6 mg/dL (8.8-10.5); CARBON DIOXIDE 35 mmol/L (22-29); CHLORIDE 96 mmol/L (98-107); CREATININE 0.58 mg/dL (0.60-1.30); GLOMERULAR FILTR. RATE CALC > 60 mL/min (>60); GLUCOSE,RANDOM 188 mg/dL (70-110); POTASSIUM 4.5 mmol/L (3.5-5.1); SODIUM SERUM 131 mmol/L (136-145); TOTAL PROTEIN, SERUM 5.7 g/dL (6.4-8.2); UREA NITROGEN, BLOOD 24 mg/dL (7-18)
[2021-02-14 06:50] LABS: PLATELET MORPHOLOGY COMMENT LARGE PLTS PRESENT
[2021-02-14] MEDS: FentaNYL CIT 1000MCG/0.9% NACL 100 ML IV PRN ×2 (07:16→16:45)
[2021-02-14 08:00] VITALS: BP 112/76
[2021-02-14] MEDS: ENOXAPARIN SODIUM 40 MG/0.4 ML PF SYRINGE SQ SCH ×2 (09:48→20:18)
[2021-02-14] MEDS: DEXAMETHASONE SOD PHOS 4 MG/ML VIAL IVP SCH (09:48)
[2021-02-14] MEDS: DOCUSATE SODIUM 100 MG CAPSULE PO SCH ×2 (09:48→20:18)
[2021-02-14] MEDS: MULTIVITAMINS, THERAPEUTIC 15 ML UDCUP NG SCH (09:49)
[2021-02-14] MEDS: CHOLECALCIFEROL (VIT D3) 2,000 UNITS [50 MCG] TABLET PO SCH (09:49)
[2021-02-14] MEDS: THIAMINE 100 MG/ML 2 ML VIAL IVP SCH (09:50)
[2021-02-14] MEDS: ETHYL ALCOHOL 62% ANTISEPTIC NASAL INHALANT 0.6 ML AMPUL NASAL SCH ×2 (09:50→20:18)
[2021-02-14] MEDS: FAMOTIDINE 10 MG/ML 2 ML VIAL IVP SCH (09:51)
[2021-02-14 12:00] VITALS: BP 111/65
[2021-02-14] MEDS: AZITHROMYCIN 500 MG/NS 250 ML IV SCH (14:07)
[2021-02-14] MEDS: CefTRIAXone SODIUM 2 GM in DEXTROSE 5%-WATER 50 ML IV SCH (15:20)
[2021-02-14 16:00] VITALS: BP 97/56
[2021-02-14 20:00] VITALS: BP 94/57
[2021-02-14] MEDS: ACETAMINOPHEN 325 MG TABLET PO PRN (20:18)
[2021-02-14] MEDS ORDERED: SODIUM CHLORIDE 0.9% 250 ML IV ONE (20:20)
[2021-02-14 21:31] LABS: ABG A-A DIFF O2 288.6 mmHg (10-20.0); ABG BASE EXCESS 4.3 mmol/L (-2.0-3.0); ABG CARBOXYHEMOGLOBIN 0.8 % (0.0-1.5); ABG HCO3 27.8 mmol/L (22.0-26.0); ABG METHEMOGLOBIN 0.3 % (0.0-1.5); ABG OXYGEN CONTENT 16.7 mL/dL (15.0-23.0); ABG OXYGEN SATURATION 89.6 % (95.0-98.0); ABG OXYHEMOGLOBIN 88.6 % (94.0-100.0); ABG PCO2 42 mmHg (35-45); ABG PH 7.447 (7.35-7.450); ABG TOTAL HEMOGLOBIN 13.4 G/dL (12.0-18.0); PO2, ARTERIAL BG 56.2 mmHg (84.0-92.0); SOURCE, BLOOD GAS ARTERIAL; TEMPERATURE, FAHRENHEIT, BG 99.4 FAHREN (96.0-98.6)
[2021-02-14 21:33] LABS: O2 DEVICE,BLOOD GAS VENTILATOR (ROOM AIR); PEEP,BG 10 cm H2O; SITE, BLOOD GAS RT RADIAL; SPONTANEOUS VT, BG 517 ml; VENT MODE, BG Press. Control Vent (ROOM AIR)
[2021-02-15] VITALS: BP 130/78
[2021-02-15] MEDS: CISATRACURIUM BESYLATE 100 MG in DEXTROSE 5%-WATER 240 ML IV PRN ×4 (00:41→20:09)
[2021-02-15] MEDS: PROPOFOL 1000 MG/ISO-OSM 100 ML IV PRN ×5 (01:45→20:11)
[2021-02-15] MEDS: FentaNYL CIT 1000MCG/0.9% NACL 100 ML IV PRN ×3 (03:47→20:08)
[2021-02-15 04:00] VITALS: BP 122/77
[2021-02-15 05:02] LABS: BASOPHILS % (AUTO) 0.3 % (0.0-2.0); EOSINOPHILS % (AUTO) 0.5 % (1.0-6.0); HEMATOCRIT 39.6 % (41-53); HEMOGLOBIN 12.9 g/dL (13.5-17.5); LYMPHOCYTES # (AUTO) 0.9 K/uL (1.0-4.8); LYMPHOCYTES % (AUTO) 6.6 % (22.0-44.0); MEAN CORPUSCULAR HGB CONC 32.5 G/dL (31.0-37.0); MEAN CORPUSCULAR VOLUME 92 fL (80-100); MONOCYTES # (AUTO) 0.8 K/uL (0.1-1.0); NEUTROPHILS # (AUTO) 11.8 K/uL (1.8-7.7); PLATELET COUNT (AUTO) 146 K/uL (150-450); RED CELL DISTRIBUTION WIDTH 13.4 % (11.5-14.5)
[2021-02-15 05:19] LABS: ALANINE AMINOTRANSFERASE 100 U/L (12-78); ALBUMIN 2.6 g/dL (3.4-5.0); ALKALINE PHOSPHATASE 77 U/L (46-116); ANION GAP 5 mmol/L (8-16); ASPARTATE AMINOTRANSFERASE 41 U/L (15-37); BILIRUBIN,TOTAL 0.7 mg/dL (0.1-1.0); C-REACTIVE PROTEIN QUANT 0.17 mg/dL (0.00-0.30); CARBON DIOXIDE 35 mmol/L (22-29); CHLORIDE 98 mmol/L (98-107); CREATININE 0.62 mg/dL (0.60-1.30); GLOMERULAR FILTR. RATE CALC > 60 mL/min (>60); GLUCOSE,RANDOM 134 mg/dL (70-110); POTASSIUM 3.8 mmol/L (3.5-5.1); SODIUM SERUM 138 mmol/L (136-145); TOTAL PROTEIN, SERUM 5.4 g/dL (6.4-8.2); UREA NITROGEN, BLOOD 21 mg/dL (7-18)
[2021-02-15 05:35] LABS: NEUTROPHILS % (AUTO) 86.6 % (40.0-70.0)
[2021-02-15 08:00] VITALS: BP 160/103
[2021-02-15] MEDS: DEXAMETHASONE SOD PHOS 4 MG/ML VIAL IVP SCH (08:51)
[2021-02-15] MEDS: FAMOTIDINE 10 MG/ML 2 ML VIAL IVP SCH (08:52)
[2021-02-15] MEDS: ETHYL ALCOHOL 62% ANTISEPTIC NASAL INHALANT 0.6 ML AMPUL NASAL SCH ×2 (08:53→22:29)
[2021-02-15] MEDS: THIAMINE 100 MG/ML 2 ML VIAL IVP SCH (08:53)
[2021-02-15] MEDS: ENOXAPARIN SODIUM 40 MG/0.4 ML PF SYRINGE SQ SCH (08:54)
[2021-02-15] MEDS: MULTIVITAMINS, THERAPEUTIC 15 ML UDCUP NG SCH (08:54)
[2021-02-15] MEDS: DOCUSATE SODIUM 100 MG CAPSULE PO SCH ×2 (08:55→22:29)
[2021-02-15] MEDS: CHOLECALCIFEROL (VIT D3) 2,000 UNITS [50 MCG] TABLET PO SCH (08:55)
[2021-02-15 12:00] VITALS: BP 146/101
[2021-02-15] MEDS: AZITHROMYCIN 500 MG/NS 250 ML IV SCH (14:16)
[2021-02-15 16:00] VITALS: BP 128/82
[2021-02-15] MEDS: CefTRIAXone SODIUM 2 GM in DEXTROSE 5%-WATER 50 ML IV SCH (17:35)
[2021-02-15 20:03] VITALS: BP 109/65
[2021-02-15 21:55] LABS: ABG A-A DIFF O2 244.6 mmHg (10-20.0); ABG BASE EXCESS 4.2 mmol/L (-2.0-3.0); ABG CARBOXYHEMOGLOBIN 0.7 % (0.0-1.5); ABG HCO3 26.8 mmol/L (22.0-26.0); ABG METHEMOGLOBIN 0.3 % (0.0-1.5); ABG OXYGEN SATURATION 94.6 % (95.0-98.0); ABG OXYHEMOGLOBIN 93.7 % (94.0-100.0); ABG PCO2 60 mmHg (35-45); ABG PH 7.324 (7.35-7.450); ABG TOTAL HEMOGLOBIN 14.4 G/dL (12.0-18.0); SOURCE, BLOOD GAS ARTERIAL; TEMPERATURE, FAHRENHEIT, BG 98.8 FAHREN (96.0-98.6)
[2021-02-15 21:56] LABS: O2 DEVICE,BLOOD GAS VENTILATOR (ROOM AIR); PEEP,BG 10 cm H2O; SITE, BLOOD GAS RT RADIAL; VENT MODE, BG Press. Control Vent (ROOM AIR)
[2021-02-15] MEDS: ENOXAPARIN SODIUM 100 MG/ML PF SYRINGE SQ SCH (22:29)
[2021-02-16 00:04] VITALS: BP 134/82
[2021-02-16] MEDS: PROPOFOL 1000 MG/ISO-OSM 100 ML IV PRN ×5 (01:38→20:48)
[2021-02-16] MEDS: LACTULOSE 20 GM/30 ML SOLUTION UDCUP PO PRN ×2 (01:52→20:49)
[2021-02-16 04:03] VITALS: BP 155/96
[2021-02-16] MEDS: CISATRACURIUM BESYLATE 100 MG in DEXTROSE 5%-WATER 240 ML IV PRN ×3 (04:22→15:26)
[2021-02-16 07:46] LABS: BAND NEUTROPHILS % (MANUAL) 0 % (0-5)
[2021-02-16 07:50] LABS: HEMATOCRIT 40.3 % (41-53); HEMOGLOBIN 13.3 g/dL (13.5-17.5); MEAN CORPUSCULAR HEMOGLOBIN 30.5 pg (26.0-34.0); MEAN CORPUSCULAR VOLUME 92 fL (80-100); PLATELET COUNT (AUTO) 135 K/uL (150-450); RED BLOOD CELL COUNT(AUTO) 4.36 MIL/uL (4.50-5.90); RED CELL DISTRIBUTION WIDTH 13.5 % (11.5-14.5)
[2021-02-16 07:58] LABS: ANION GAP 4 mmol/L (8-16); CALCIUM, TOTAL 8.2 mg/dL (8.8-10.5); CARBON DIOXIDE 31 mmol/L (22-29); CHLORIDE 99 mmol/L (98-107); CREATININE 0.62 mg/dL (0.60-1.30); GLOMERULAR FILTR. RATE CALC > 60 mL/min (>60); GLUCOSE,RANDOM 151 mg/dL (70-110); POTASSIUM 4.1 mmol/L (3.5-5.1); SODIUM SERUM 134 mmol/L (136-145); UREA NITROGEN, BLOOD 25 mg/dL (7-18)
[2021-02-16 08:00] VITALS: BP 129/83
[2021-02-16 08:21] LABS: LYMPHOCYTES % (MANUAL) 28 % (22-44); MONOCYTES % (MANUAL) 1 % (2-9); SEGMENTED NEUTROPHILS % 71 % (40-70)
[2021-02-16] MEDS: CHOLECALCIFEROL (VIT D3) 2,000 UNITS [50 MCG] TABLET PO SCH (08:25)
[2021-02-16] MEDS: DEXAMETHASONE SOD PHOS 4 MG/ML VIAL IVP SCH (08:25)
[2021-02-16] MEDS: FAMOTIDINE 10 MG/ML 2 ML VIAL IVP SCH (08:25)
[2021-02-16] MEDS: MULTIVITAMINS, THERAPEUTIC 15 ML UDCUP NG SCH (08:25)
[2021-02-16] MEDS: THIAMINE 100 MG/ML 2 ML VIAL IVP SCH (08:25)
[2021-02-16] MEDS: DOCUSATE SODIUM 100 MG CAPSULE PO SCH ×2 (08:26→20:49)
[2021-02-16] MEDS: ENOXAPARIN SODIUM 100 MG/ML PF SYRINGE SQ SCH ×2 (08:26→20:48)
[2021-02-16] MEDS: ETHYL ALCOHOL 62% ANTISEPTIC NASAL INHALANT 0.6 ML AMPUL NASAL SCH ×2 (08:26→20:48)
[2021-02-16] MEDS: FentaNYL CIT 1000MCG/0.9% NACL 100 ML IV PRN ×2 (08:57→18:47)
[2021-02-16 12:00] VITALS: BP 122/85
[2021-02-16] MEDS: AZITHROMYCIN 500 MG/NS 250 ML IV SCH (14:01)
[2021-02-16 16:00] VITALS: BP 97/67
[2021-02-16 20:01] VITALS: BP 106/68
[2021-02-16] MEDS ORDERED: SODIUM CHLORIDE 0.9% 250 ML IV ONE (20:46)
[2021-02-17 00:03] VITALS: BP 135/93
[2021-02-17] MEDS: CISATRACURIUM BESYLATE 100 MG in DEXTROSE 5%-WATER 240 ML IV PRN ×2 (00:10→06:18)
[2021-02-17 00:19] LABS: ABG A-A DIFF O2 245.2 mmHg (10-20.0); ABG BASE EXCESS 5.2 mmol/L (-2.0-3.0); ABG CARBOXYHEMOGLOBIN 0.8 % (0.0-1.5); ABG HCO3 28.6 mmol/L (22.0-26.0); ABG METHEMOGLOBIN 0.3 % (0.0-1.5); ABG OXYGEN CONTENT 18.9 mL/dL (15.0-23.0); ABG OXYGEN SATURATION 97.3 % (95.0-98.0); ABG OXYHEMOGLOBIN 96.2 % (94.0-100.0); ABG PCO2 45 mmHg (35-45); ABG PH 7.437 (7.35-7.450); ABG TOTAL HEMOGLOBIN 13.9 G/dL (12.0-18.0); PO2, ARTERIAL BG 96.8 mmHg (84.0-92.0); SOURCE, BLOOD GAS ARTERIAL; TEMPERATURE, FAHRENHEIT, BG 99.1 FAHREN (96.0-98.6)
[2021-02-17 00:20] LABS: O2 DEVICE,BLOOD GAS VENTILATOR (ROOM AIR); SITE, BLOOD GAS LFT BRACHIAL; VENT MODE, BG PC (ROOM AIR); VT, ABG 473 ml
[2021-02-17 00:21] LABS: PEEP,BG 10 cm H2O; SPONTANEOUS VT, BG 474 ml
[2021-02-17] MEDS: PROPOFOL 1000 MG/ISO-OSM 100 ML IV PRN ×5 (02:07→22:07)
[2021-02-17 04:02] VITALS: BP 88/57
[2021-02-17] MEDS: FentaNYL CIT 1000MCG/0.9% NACL 100 ML IV PRN ×3 (06:47→17:18)
[2021-02-17 08:00] VITALS: BP 138/93
[2021-02-17] MEDS: CHOLECALCIFEROL (VIT D3) 2,000 UNITS [50 MCG] TABLET PO SCH (08:33)
[2021-02-17] MEDS: DOCUSATE SODIUM 100 MG CAPSULE PO SCH ×2 (08:33→22:01)
[2021-02-17] MEDS: FAMOTIDINE 10 MG/ML 2 ML VIAL IVP SCH (08:33)
[2021-02-17] MEDS: DEXAMETHASONE SOD PHOS 4 MG/ML VIAL IVP SCH (08:33)
[2021-02-17] MEDS: THIAMINE 100 MG/ML 2 ML VIAL IVP SCH (08:34)
[2021-02-17] MEDS: ETHYL ALCOHOL 62% ANTISEPTIC NASAL INHALANT 0.6 ML AMPUL NASAL SCH ×2 (08:39→22:01)
[2021-02-17] MEDS: MULTIVITAMINS, THERAPEUTIC 15 ML UDCUP NG SCH (08:40)
[2021-02-17] MEDS: ENOXAPARIN SODIUM 100 MG/ML PF SYRINGE SQ SCH ×2 (08:40→22:04)
[2021-02-17 12:00] VITALS: BP 93/66
[2021-02-17] MEDS ORDERED: RAPID SEQUENCE KIT [RSI] 1 EACH KIT MISC ONE (13:28)
[2021-02-17 16:00] VITALS: BP 109/73
[2021-02-17 19:01] LABS: GLUCOSE,POINT OF CARE 149 MG/DL (70-110)
[2021-02-17 20:00] VITALS: BP 141/96
[2021-02-17] MEDS ORDERED: SODIUM CHLORIDE 0.9% 250 ML IV ONE (21:51)
[2021-02-17] MEDS: LACTULOSE 20 GM/30 ML SOLUTION UDCUP PO PRN (22:01)
[2021-02-18] VITALS: BP 129/90
[2021-02-18] MEDS: PROPOFOL 1000 MG/ISO-OSM 100 ML IV PRN ×3 (03:49→21:04)
[2021-02-18] MEDS: FentaNYL CIT 1000MCG/0.9% NACL 100 ML IV PRN ×4 (03:49→21:04)
[2021-02-18 04:00] VITALS: BP 115/73
[2021-02-18 06:07] LABS: BASOPHILS % (AUTO) 0.5 % (0.0-2.0); EOSINOPHILS % (AUTO) 1.5 % (1.0-6.0); HEMATOCRIT 36.4 % (41-53); HEMOGLOBIN 12.1 g/dL (13.5-17.5); LYMPHOCYTES # (AUTO) 1.4 K/uL (1.0-4.8); LYMPHOCYTES % (AUTO) 11.4 % (22.0-44.0); MEAN CORPUSCULAR HEMOGLOBIN 30.8 pg (26.0-34.0); MEAN CORPUSCULAR HGB CONC 33.3 G/dL (31.0-37.0); MEAN CORPUSCULAR VOLUME 93 fL (80-100); MONOCYTES # (AUTO) 0.7 K/uL (0.1-1.0); MONOCYTES % (AUTO) 5.8 % (2.0-9.0); NEUTROPHILS # (AUTO) 10.2 K/uL (1.8-7.7); NEUTROPHILS % (AUTO) 80.8 % (40.0-70.0); RED BLOOD CELL COUNT(AUTO) 3.93 MIL/uL (4.50-5.90); RED CELL DISTRIBUTION WIDTH 13.7 % (11.5-14.5)
[2021-02-18 06:33] LABS: ALANINE AMINOTRANSFERASE 103 U/L (12-78); ALBUMIN 2.5 g/dL (3.4-5.0); ALKALINE PHOSPHATASE 64 U/L (46-116); ANION GAP 6 mmol/L (8-16); ASPARTATE AMINOTRANSFERASE 49 U/L (15-37); BILIRUBIN,TOTAL 1.2 mg/dL (0.1-1.0); CALCIUM, TOTAL 7.6 mg/dL (8.8-10.5); CARBON DIOXIDE 29 mmol/L (22-29); CHLORIDE 104 mmol/L (98-107); CREATININE 0.42 mg/dL (0.60-1.30); GLOMERULAR FILTR. RATE CALC > 60 mL/min (>60); GLUCOSE,RANDOM 96 mg/dL (70-110); POTASSIUM 3.4 mmol/L (3.5-5.1); SODIUM SERUM 139 mmol/L (136-145); TOTAL PROTEIN, SERUM 4.8 g/dL (6.4-8.2); UREA NITROGEN, BLOOD 27 mg/dL (7-18)
[2021-02-18 06:47] LABS: PLATELET COUNT (AUTO) 104 K/uL (150-450)
[2021-02-18 08:02] VITALS: BP 113/73
[2021-02-18] MEDS: CHOLECALCIFEROL (VIT D3) 2,000 UNITS [50 MCG] TABLET PO SCH (08:20)
[2021-02-18] MEDS: ENOXAPARIN SODIUM 100 MG/ML PF SYRINGE SQ SCH ×2 (08:20→20:35)
[2021-02-18] MEDS: DOCUSATE SODIUM 100 MG CAPSULE PO SCH ×2 (08:20→20:35)
[2021-02-18] MEDS: ETHYL ALCOHOL 62% ANTISEPTIC NASAL INHALANT 0.6 ML AMPUL NASAL SCH ×2 (08:20→20:35)
[2021-02-18] MEDS: THIAMINE 100 MG/ML 2 ML VIAL IVP SCH (08:20)
[2021-02-18] MEDS: DEXAMETHASONE SOD PHOS 4 MG/ML VIAL IVP SCH (08:21)
[2021-02-18] MEDS: MULTIVITAMINS, THERAPEUTIC 15 ML UDCUP NG SCH (08:21)
[2021-02-18] MEDS: FAMOTIDINE 10 MG/ML 2 ML VIAL IVP SCH (08:22)
[2021-02-18 11:37] LABS: ABG A-A DIFF O2 283.7 mmHg (10-20.0); ABG BASE EXCESS 2.4 mmol/L (-2.0-3.0); ABG HCO3 26.5 mmol/L (22.0-26.0); ABG METHEMOGLOBIN 0.3 % (0.0-1.5); ABG OXYGEN CONTENT 18.5 mL/dL (15.0-23.0); ABG OXYGEN SATURATION 97.6 % (95.0-98.0); ABG OXYHEMOGLOBIN 96.3 % (94.0-100.0); ABG PCO2 41 mmHg (35-45); ABG PH 7.431 (7.35-7.450); ABG TOTAL HEMOGLOBIN 13.6 G/dL (12.0-18.0); PO2, ARTERIAL BG 98.3 mmHg (84.0-92.0); SOURCE, BLOOD GAS ARTERIAL; TEMPERATURE, FAHRENHEIT, BG 99.3 FAHREN (96.0-98.6)
[2021-02-18 11:38] LABS: O2 DEVICE,BLOOD GAS VENTILATOR (ROOM AIR); SITE, BLOOD GAS RT RADIAL; VENT MODE, BG PCV/AC (ROOM AIR)
[2021-02-18 11:39] LABS: PEEP,BG 5 cm H2O; VT, ABG 489 ml
[2021-02-18 12:03] VITALS: BP 127/74
[2021-02-18 16:00] VITALS: BP 102/60
[2021-02-18] MEDS ORDERED: POTASSIUM CHLORIDE 10% 40 MEQ/30 ML LIQUID UDCUP NG ONE (16:30)
[2021-02-18 20:00] VITALS: BP 119/75
[2021-02-19] VITALS: BP 123/82
[2021-02-19] MEDS: PROPOFOL 1000 MG/ISO-OSM 100 ML IV PRN ×4 (01:52→17:05)
[2021-02-19 04:00] VITALS: BP 132/79
[2021-02-19] MEDS: FentaNYL CIT 1000MCG/0.9% NACL 100 ML IV PRN ×3 (04:40→21:32)
[2021-02-19 08:00] VITALS: BP 94/62
[2021-02-19] MEDS: FAMOTIDINE 10 MG/ML 2 ML VIAL IVP SCH (08:58)
[2021-02-19] MEDS: ENOXAPARIN SODIUM 100 MG/ML PF SYRINGE SQ SCH ×2 (08:58→20:38)
[2021-02-19] MEDS: THIAMINE 100 MG/ML 2 ML VIAL IVP SCH (09:00)
[2021-02-19] MEDS: CHOLECALCIFEROL (VIT D3) 2,000 UNITS [50 MCG] TABLET PO SCH (09:00)
[2021-02-19] MEDS: DEXAMETHASONE SOD PHOS 4 MG/ML VIAL IVP SCH (09:01)
[2021-02-19] MEDS: ETHYL ALCOHOL 62% ANTISEPTIC NASAL INHALANT 0.6 ML AMPUL NASAL SCH ×2 (09:01→20:37)
[2021-02-19] MEDS: MULTIVITAMINS, THERAPEUTIC 15 ML UDCUP NG SCH (09:01)
[2021-02-19] MEDS: DOCUSATE SODIUM 100 MG CAPSULE PO SCH ×2 (09:01→20:37)
[2021-02-19 11:07] LABS: ABG BASE EXCESS 1.3 mmol/L (-2.0-3.0); ABG CARBOXYHEMOGLOBIN 1.2 % (0.0-1.5); ABG HCO3 25.4 mmol/L (22.0-26.0); ABG METHEMOGLOBIN 0.3 % (0.0-1.5); ABG OXYGEN CONTENT 15.8 mL/dL (15.0-23.0); ABG OXYGEN SATURATION 87.1 % (95.0-98.0); ABG OXYHEMOGLOBIN 85.8 % (94.0-100.0); ABG PCO2 40 mmHg (35-45); ABG PH 7.423 (7.35-7.450); ABG TOTAL HEMOGLOBIN 13.1 G/dL (12.0-18.0); PO2, ARTERIAL BG 51.4 mmHg (84.0-92.0); SOURCE, BLOOD GAS ARTERIAL; TEMPERATURE, FAHRENHEIT, BG 99.2 FAHREN (96.0-98.6)
[2021-02-19 11:08] LABS: CPAP, BG 5 cm H2O; O2 DEVICE,BLOOD GAS VENTILATOR (ROOM AIR); PRESSURE SUPPORT, BG 8 cm H2O; SITE, BLOOD GAS RT RADIAL; SPONTANEOUS VT, BG 592 ml; VENT MODE, BG CPAP (ROOM AIR)
[2021-02-19 12:00] VITALS: BP 119/90
[2021-02-19 16:00] VITALS: BP 90/59
[2021-02-19 20:00] VITALS: BP 87/54
[2021-02-20] VITALS: BP 109/72
[2021-02-20 02:40] LABS: GLUCOSE,POINT OF CARE 107 MG/DL (70-110)
[2021-02-20 04:00] VITALS: BP 121/73
[2021-02-20 04:30] LABS: BASOPHILS % (AUTO) 0.4 % (0.0-2.0); EOSINOPHILS % (AUTO) 2.1 % (1.0-6.0); HEMATOCRIT 35.3 % (41-53); HEMOGLOBIN 12.3 g/dL (13.5-17.5); LYMPHOCYTES # (AUTO) 1.4 K/uL (1.0-4.8); LYMPHOCYTES % (AUTO) 12.7 % (22.0-44.0); MEAN CORPUSCULAR HEMOGLOBIN 32.3 pg (26.0-34.0); MEAN CORPUSCULAR HGB CONC 34.8 G/dL (31.0-37.0); MEAN CORPUSCULAR VOLUME 93 fL (80-100); MONOCYTES % (AUTO) 0.3 % (2.0-9.0); NEUTROPHILS # (AUTO) 9.3 K/uL (1.8-7.7); NEUTROPHILS % (AUTO) 84.5 % (40.0-70.0); PLATELET COUNT (AUTO) 74 K/uL (150-450); RED CELL DISTRIBUTION WIDTH 14.2 % (11.5-14.5)
[2021-02-20 04:43] LABS: ALBUMIN 2.5 g/dL (3.4-5.0); ALKALINE PHOSPHATASE 82 U/L (46-116); ANION GAP 7 mmol/L (8-16); ASPARTATE AMINOTRANSFERASE 52 U/L (15-37); BILIRUBIN,TOTAL 1.4 mg/dL (0.1-1.0); CALCIUM, TOTAL 7.2 mg/dL (8.8-10.5); CARBON DIOXIDE 26 mmol/L (22-29); CHLORIDE 99 mmol/L (98-107); CREATININE 0.54 mg/dL (0.60-1.30); GLOMERULAR FILTR. RATE CALC > 60 mL/min (>60); GLUCOSE,RANDOM 110 mg/dL (70-110); POTASSIUM 3.7 mmol/L (3.5-5.1); SODIUM SERUM 132 mmol/L (136-145); UREA NITROGEN, BLOOD 23 mg/dL (7-18)
[2021-02-20 04:59] LABS: TOTAL PROTEIN, SERUM 5.3 g/dL (6.4-8.2)
[2021-02-20 05:18] LABS: PLATELET MORPHOLOGY COMMENT LARGE PLTS PRESENT
[2021-02-20] MEDS: FentaNYL CIT 1000MCG/0.9% NACL 100 ML IV PRN ×3 (05:39→20:38)
[2021-02-20 05:43] LABS: ALANINE AMINOTRANSFERASE 144 U/L (12-78)
[2021-02-20 08:00] VITALS: BP 128/79
[2021-02-20] MEDS: DEXAMETHASONE SOD PHOS 4 MG/ML VIAL IVP SCH (08:58)
[2021-02-20] MEDS: MULTIVITAMINS, THERAPEUTIC 15 ML UDCUP NG SCH (08:59)
[2021-02-20] MEDS: ETHYL ALCOHOL 62% ANTISEPTIC NASAL INHALANT 0.6 ML AMPUL NASAL SCH ×2 (08:59→20:28)
[2021-02-20] MEDS: DOCUSATE SODIUM 100 MG CAPSULE PO SCH ×2 (09:00→20:32)
[2021-02-20] MEDS: ENOXAPARIN SODIUM 100 MG/ML PF SYRINGE SQ SCH ×2 (09:01→20:28)
[2021-02-20] MEDS: CHOLECALCIFEROL (VIT D3) 2,000 UNITS [50 MCG] TABLET PO SCH (09:01)
[2021-02-20] MEDS: FAMOTIDINE 10 MG/ML 2 ML VIAL IVP SCH (09:04)
[2021-02-20] MEDS: THIAMINE 100 MG/ML 2 ML VIAL IVP SCH (09:06)
[2021-02-20] MEDS: PROPOFOL 1000 MG/ISO-OSM 100 ML IV PRN ×3 (09:06→20:36)
[2021-02-20 11:00] LABS: ABG CARBOXYHEMOGLOBIN 1.1 % (0.0-1.5); ABG HCO3 25.3 mmol/L (22.0-26.0); ABG METHEMOGLOBIN 0.3 % (0.0-1.5); ABG OXYGEN CONTENT 16.9 mL/dL (15.0-23.0); ABG OXYGEN SATURATION 91.1 % (95.0-98.0); ABG OXYHEMOGLOBIN 89.8 % (94.0-100.0); ABG PCO2 40 mmHg (35-45); ABG PH 7.422 (7.35-7.450); ABG TOTAL HEMOGLOBIN 13.4 G/dL (12.0-18.0); PO2, ARTERIAL BG 59.1 mmHg (84.0-92.0); SOURCE, BLOOD GAS ARTERIAL; TEMPERATURE, FAHRENHEIT, BG 99.1 FAHREN (96.0-98.6)
[2021-02-20 11:01] LABS: CPAP, BG 5 cm H2O; O2 DEVICE,BLOOD GAS VENTILATOR (ROOM AIR); PRESSURE SUPPORT, BG 8 cm H2O; SITE, BLOOD GAS RT RADIAL; SPONTANEOUS VT, BG 623 ml; VENT MODE, BG CPAP (ROOM AIR)
[2021-02-20 12:00] VITALS: BP 108/75
[2021-02-20 16:00] VITALS: BP 95/57
[2021-02-20 20:00] VITALS: BP 109/69
[2021-02-21] VITALS: BP 87/56
[2021-02-21] MEDS: FentaNYL CIT 1000MCG/0.9% NACL 100 ML IV PRN ×2 (02:46→20:46)
[2021-02-21 04:00] VITALS: BP 80/50
[2021-02-21 06:35] LABS: GLUCOSE,POINT OF CARE 88 MG/DL (70-110)
[2021-02-21 06:35] LABS: GLUCOSE,POINT OF CARE 93 MG/DL (70-110)
[2021-02-21] MEDS: PROPOFOL 1000 MG/ISO-OSM 100 ML IV PRN ×3 (07:35→20:46)
[2021-02-21 08:00] VITALS: BP 103/58
[2021-02-21] MEDS: DEXAMETHASONE SOD PHOS 4 MG/ML VIAL IVP SCH (08:44)
[2021-02-21] MEDS: MULTIVITAMINS, THERAPEUTIC 15 ML UDCUP NG SCH (08:44)
[2021-02-21] MEDS: DOCUSATE SODIUM 100 MG CAPSULE PO SCH ×2 (08:44→20:47)
[2021-02-21] MEDS: FAMOTIDINE 10 MG/ML 2 ML VIAL IVP SCH (08:44)
[2021-02-21] MEDS: THIAMINE 100 MG/ML 2 ML VIAL IVP SCH (08:44)
[2021-02-21] MEDS: ENOXAPARIN SODIUM 100 MG/ML PF SYRINGE SQ SCH ×2 (08:45→20:47)
[2021-02-21] MEDS: ETHYL ALCOHOL 62% ANTISEPTIC NASAL INHALANT 0.6 ML AMPUL NASAL SCH ×2 (08:45→20:47)
[2021-02-21] MEDS: CHOLECALCIFEROL (VIT D3) 2,000 UNITS [50 MCG] TABLET PO SCH (08:45)
[2021-02-21] MEDS ORDERED: ONDANSETRON HCL 4 MG/2 ML VIAL IM PRN (10:00)
[2021-02-21] MEDS: ONDANSETRON HCL 4 MG/2 ML VIAL IVP PRN (10:29)
[2021-02-21] MEDS: ACETAMINOPHEN 325 MG TABLET PO PRN (10:29)
[2021-02-21 11:20] LABS: ABG A-A DIFF O2 234.3 mmHg (10-20.0); ABG BASE EXCESS -0.4 mmol/L (-2.0-3.0); ABG HCO3 24.3 mmol/L (22.0-26.0); ABG METHEMOGLOBIN 0.3 % (0.0-1.5); ABG OXYGEN CONTENT 17.9 mL/dL (15.0-23.0); ABG OXYGEN SATURATION 94.8 % (95.0-98.0); ABG OXYHEMOGLOBIN 93.6 % (94.0-100.0); ABG PCO2 41 mmHg (35-45); ABG PH 7.399 (7.35-7.450); ABG TOTAL HEMOGLOBIN 13.6 G/dL (12.0-18.0); O2 DEVICE,BLOOD GAS VENTILATOR (ROOM AIR); PO2, ARTERIAL BG 75.7 mmHg (84.0-92.0); SITE, BLOOD GAS RT RADIAL; SOURCE, BLOOD GAS ARTERIAL; TEMPERATURE, FAHRENHEIT, BG 99.8 FAHREN (96.0-98.6)
[2021-02-21 11:21] LABS: CPAP, BG 5 cm H2O; PRESSURE SUPPORT, BG 8 cm H2O; SPONTANEOUS VT, BG 544 ml; VENT MODE, BG CPAP (ROOM AIR)
[2021-02-21 12:00] VITALS: BP 121/75
[2021-02-21] MEDS: LACTULOSE 20 GM/30 ML SOLUTION UDCUP PO PRN (12:34)
[2021-02-21 13:06] LABS: GLUCOSE,POINT OF CARE 152 MG/DL (70-110)
[2021-02-21 16:00] VITALS: BP 103/71
[2021-02-21 20:00] VITALS: BP 123/78
[2021-02-22] VITALS: BP 105/65
[2021-02-22] MEDS: PROPOFOL 1000 MG/ISO-OSM 100 ML IV PRN ×4 (01:17→23:28)
[2021-02-22] MEDS: FentaNYL CIT 1000MCG/0.9% NACL 100 ML IV PRN ×4 (01:18→23:28)
[2021-02-22 01:23] LABS: GLUCOSE,POINT OF CARE 80 MG/DL (70-110)
[2021-02-22] MEDS: ONDANSETRON HCL 4 MG/2 ML VIAL IVP PRN ×2 (03:09→12:50)
[2021-02-22 04:00] VITALS: BP 122/76
[2021-02-22 05:55] LABS: BASOPHILS % (AUTO) 0.7 % (0.0-2.0); HEMATOCRIT 35.8 % (41-53); HEMOGLOBIN 12.2 g/dL (13.5-17.5); LYMPHOCYTES # (AUTO) 1.2 K/uL (1.0-4.8); LYMPHOCYTES % (AUTO) 14.2 % (22.0-44.0); MEAN CORPUSCULAR HEMOGLOBIN 31.8 pg (26.0-34.0); MEAN CORPUSCULAR VOLUME 94 fL (80-100); MONOCYTES # (AUTO) 0.5 K/uL (0.1-1.0); MONOCYTES % (AUTO) 6.6 % (2.0-9.0); NEUTROPHILS # (AUTO) 6.1 K/uL (1.8-7.7); NEUTROPHILS % (AUTO) 74.5 % (40.0-70.0); PLATELET COUNT (AUTO) 88 K/uL (150-450); RED BLOOD CELL COUNT(AUTO) 3.83 MIL/uL (4.50-5.90); RED CELL DISTRIBUTION WIDTH 14.1 % (11.5-14.5)
[2021-02-22 05:59] LABS: INR 1.1 (0.9-1.1); PROTHROMBIN TIME 11.7 SEC (9.4-11.6)
[2021-02-22 06:25] LABS: ALANINE AMINOTRANSFERASE 101 U/L (12-78); ALBUMIN 2.6 g/dL (3.4-5.0); ALKALINE PHOSPHATASE 77 U/L (46-116); ANION GAP 4 mmol/L (8-16); CALCIUM, TOTAL 8.1 mg/dL (8.8-10.5); CARBON DIOXIDE 26 mmol/L (22-29); CHLORIDE 103 mmol/L (98-107); CREATININE 0.53 mg/dL (0.60-1.30); GLOMERULAR FILTR. RATE CALC > 60 mL/min (>60); GLUCOSE,RANDOM 89 mg/dL (70-110); POTASSIUM 3.5 mmol/L (3.5-5.1); SODIUM SERUM 133 mmol/L (136-145); TOTAL PROTEIN, SERUM 5.5 g/dL (6.4-8.2); UREA NITROGEN, BLOOD 27 mg/dL (7-18)
[2021-02-22 06:55] LABS: GLUCOSE,POINT OF CARE 87 MG/DL (70-110)
[2021-02-22 06:56] LABS: ASPARTATE AMINOTRANSFERASE 27 U/L (15-37)
[2021-02-22 08:00] VITALS: BP 129/93
[2021-02-22] MEDS ORDERED: POTASSIUM CHLORIDE 20 MEQ ER TABLET PO PRN (08:30)
[2021-02-22] MEDS: ETHYL ALCOHOL 62% ANTISEPTIC NASAL INHALANT 0.6 ML AMPUL NASAL SCH ×2 (09:10→20:34)
[2021-02-22] MEDS: CHOLECALCIFEROL (VIT D3) 2,000 UNITS [50 MCG] TABLET PO SCH (09:10)
[2021-02-22] MEDS: MULTIVITAMINS, THERAPEUTIC 15 ML UDCUP NG SCH (09:10)
[2021-02-22] MEDS: DOCUSATE SODIUM 100 MG CAPSULE PO SCH ×2 (09:11→20:38)
[2021-02-22] MEDS: DEXAMETHASONE SOD PHOS 4 MG/ML VIAL IVP SCH (09:11)
[2021-02-22] MEDS: THIAMINE 100 MG/ML 2 ML VIAL IVP SCH (09:11)
[2021-02-22] MEDS: FAMOTIDINE 10 MG/ML 2 ML VIAL IVP SCH (09:11)
[2021-02-22] MEDS: ENOXAPARIN SODIUM 100 MG/ML PF SYRINGE SQ SCH ×2 (09:12→20:34)
[2021-02-22] MEDS: POTASSIUM CHL 10 MEQ/WATER 50 ML IV PRN ×3 (09:51→11:22)
[2021-02-22 11:01] LABS: ABG A-A DIFF O2 214.7 mmHg (10-20.0); ABG BASE EXCESS -0.4 mmol/L (-2.0-3.0); ABG CARBOXYHEMOGLOBIN 0.8 % (0.0-1.5); ABG METHEMOGLOBIN 0.3 % (0.0-1.5); ABG OXYGEN CONTENT 17.3 mL/dL (15.0-23.0); ABG OXYGEN SATURATION 90.8 % (95.0-98.0); ABG OXYHEMOGLOBIN 89.8 % (94.0-100.0); ABG PCO2 41 mmHg (35-45); ABG PH 7.394 (7.35-7.450); ABG TOTAL HEMOGLOBIN 13.7 G/dL (12.0-18.0); PO2, ARTERIAL BG 59.5 mmHg (84.0-92.0); SOURCE, BLOOD GAS ARTERIAL; TEMPERATURE, FAHRENHEIT, BG 98.6 FAHREN (96.0-98.6)
[2021-02-22 11:04] LABS: O2 DEVICE,BLOOD GAS VENTILATOR (ROOM AIR); SITE, BLOOD GAS RT RADIAL
[2021-02-22 11:05] LABS: CPAP, BG 0 cm H2O; PRESSURE SUPPORT, BG 8 cm H2O; SPONTANEOUS VT, BG 470 ml; VENT MODE, BG CPAP (ROOM AIR)
[2021-02-22 12:00] VITALS: BP 125/74
[2021-02-22 16:00] VITALS: BP 109/69
[2021-02-22] MEDS: ACETYLCYSTEINE 10% 100 MG/ML 4 ML NEB SOLUTION NEB SCH ×3 (16:56→23:54)
[2021-02-22] MEDS: IPRATROPIUM BROMIDE 0.5 MG/2.5 ML NEB SOLUTION NEB PRN ×2 (16:56→19:29)
[2021-02-22] MEDS: ALBUTEROL SULFATE 2.5 MG/0.5 ML NEB SOLUTION NEB PRN ×2 (16:56→19:29)
[2021-02-22 17:37] LABS: GLUCOSE,POINT OF CARE 154 MG/DL (70-110)
[2021-02-22 20:00] VITALS: BP 104/66
[2021-02-22] MEDS: LACTULOSE 20 GM/30 ML SOLUTION UDCUP PO PRN (20:38)
[2021-02-23] VITALS: BP 145/86
[2021-02-23] MEDS: ONDANSETRON HCL 4 MG/2 ML VIAL IVP PRN ×2 (00:19→09:02)
[2021-02-23] MEDS: ACETYLCYSTEINE 10% 100 MG/ML 4 ML NEB SOLUTION NEB SCH ×6 (03:16→23:37)
[2021-02-23] MEDS: ALBUTEROL SULFATE 2.5 MG/0.5 ML NEB SOLUTION NEB PRN ×6 (03:19→23:37)
[2021-02-23] MEDS: IPRATROPIUM BROMIDE 0.5 MG/2.5 ML NEB SOLUTION NEB PRN ×4 (03:20→15:40)
[2021-02-23] MEDS: PROPOFOL 1000 MG/ISO-OSM 100 ML IV PRN (05:07)
[2021-02-23] MEDS: FentaNYL CIT 1000MCG/0.9% NACL 100 ML IV PRN (05:08)
[2021-02-23 05:18] LABS: GLUCOSE,POINT OF CARE 109 MG/DL (70-110)
[2021-02-23 05:43] LABS: BASOPHILS % (AUTO) 0.4 % (0.0-2.0); EOSINOPHILS % (AUTO) 2.5 % (1.0-6.0); LYMPHOCYTES # (AUTO) 0.9 K/uL (1.0-4.8); LYMPHOCYTES % (AUTO) 7.9 % (22.0-44.0); MEAN CORPUSCULAR HEMOGLOBIN 30.9 pg (26.0-34.0); MEAN CORPUSCULAR HGB CONC 33.3 G/dL (31.0-37.0); MEAN CORPUSCULAR VOLUME 93 fL (80-100); MONOCYTES # (AUTO) 0.5 K/uL (0.1-1.0); MONOCYTES % (AUTO) 4.4 % (2.0-9.0); NEUTROPHILS # (AUTO) 9.5 K/uL (1.8-7.7); NEUTROPHILS % (AUTO) 84.8 % (40.0-70.0); PLATELET COUNT (AUTO) 98 K/uL (150-450); RED BLOOD CELL COUNT(AUTO) 3.88 MIL/uL (4.50-5.90); RED CELL DISTRIBUTION WIDTH 13.8 % (11.5-14.5)
[2021-02-23 05:56] LABS: ALANINE AMINOTRANSFERASE 81 U/L (12-78); ALBUMIN 2.7 g/dL (3.4-5.0); ALKALINE PHOSPHATASE 74 U/L (46-116); ANION GAP 5 mmol/L (8-16); ASPARTATE AMINOTRANSFERASE 29 U/L (15-37); BILIRUBIN,TOTAL 0.9 mg/dL (0.1-1.0); CARBON DIOXIDE 27 mmol/L (22-29); CHLORIDE 103 mmol/L (98-107); CREATININE 0.48 mg/dL (0.60-1.30); GLOMERULAR FILTR. RATE CALC > 60 mL/min (>60); GLUCOSE,RANDOM 84 mg/dL (70-110); SODIUM SERUM 135 mmol/L (136-145); TOTAL PROTEIN, SERUM 5.7 g/dL (6.4-8.2); UREA NITROGEN, BLOOD 25 mg/dL (7-18)
[2021-02-23 06:00] VITALS: BP 124/73
[2021-02-23 06:40] LABS: GLUCOSE,POINT OF CARE 85 MG/DL (70-110)
[2021-02-23] MEDS: THIAMINE 100 MG/ML 2 ML VIAL IVP SCH (07:57)
[2021-02-23] MEDS: ENOXAPARIN SODIUM 100 MG/ML PF SYRINGE SQ SCH (07:57)
[2021-02-23] MEDS: CHOLECALCIFEROL (VIT D3) 2,000 UNITS [50 MCG] TABLET PO SCH (07:58)
[2021-02-23] MEDS: DOCUSATE SODIUM 100 MG CAPSULE PO SCH ×2 (07:58→21:00)
[2021-02-23] MEDS: ETHYL ALCOHOL 62% ANTISEPTIC NASAL INHALANT 0.6 ML AMPUL NASAL SCH ×2 (07:58→21:07)
[2021-02-23] MEDS: ACETAMINOPHEN 325 MG TABLET PO PRN ×2 (07:58→21:07)
[2021-02-23] MEDS: FAMOTIDINE 10 MG/ML 2 ML VIAL IVP SCH (07:59)
[2021-02-23 08:00] VITALS: BP 97/63
[2021-02-23] MEDS: DEXAMETHASONE SOD PHOS 4 MG/ML VIAL IVP SCH (08:00)
[2021-02-23] MEDS: MULTIVITAMINS, THERAPEUTIC 15 ML UDCUP NG SCH (08:00)
[2021-02-23 11:51] LABS: ABG A-A DIFF O2 164.3 mmHg (10-20.0); ABG BASE EXCESS -3.1 mmol/L (-2.0-3.0); ABG HCO3 22.3 mmol/L (22.0-26.0); ABG METHEMOGLOBIN 0.3 % (0.0-1.5); ABG OXYGEN CONTENT 17.5 mL/dL (15.0-23.0); ABG OXYGEN SATURATION 95.1 % (95.0-98.0); ABG OXYHEMOGLOBIN 93.9 % (94.0-100.0); ABG PCO2 37 mmHg (35-45); ABG PH 7.388 (7.35-7.450); ABG TOTAL HEMOGLOBIN 13.2 G/dL (12.0-18.0); PO2, ARTERIAL BG 77.7 mmHg (84.0-92.0); SOURCE, BLOOD GAS ARTERIAL; TEMPERATURE, FAHRENHEIT, BG 99.7 FAHREN (96.0-98.6)
[2021-02-23 11:54] LABS: CPAP, BG 5 cm H2O; O2 DEVICE,BLOOD GAS VENTILATOR (ROOM AIR); PRESSURE SUPPORT, BG 5 cm H2O; SITE, BLOOD GAS RT RADIAL; SPONTANEOUS VT, BG 488 ml; VENT MODE, BG CPAP (ROOM AIR)
[2021-02-23] MEDS: DEXTROSE 5%-0.45% SODIUM CHL 1,000 ML IV SCH (14:17)
[2021-02-23 16:00] VITALS: BP 136/79
[2021-02-23 20:00] VITALS: BP 153/89
[2021-02-23] MEDS: ENOXAPARIN SODIUM 80 MG/0.8 ML PF SYRINGE SQ SCH (21:07)
[2021-02-24] VITALS: BP 134/92
[2021-02-24 04:00] VITALS: BP 128/82
[2021-02-24] MEDS: ACETYLCYSTEINE 10% 100 MG/ML 4 ML NEB SOLUTION NEB SCH ×6 (04:04→23:01)
[2021-02-24 05:37] LABS: ANION GAP 3 mmol/L (8-16); CALCIUM, TOTAL 8.3 mg/dL (8.8-10.5); CARBON DIOXIDE 26 mmol/L (22-29); CHLORIDE 105 mmol/L (98-107); CREATININE 0.55 mg/dL (0.60-1.30); GLOMERULAR FILTR. RATE CALC > 60 mL/min (>60); GLUCOSE,RANDOM 101 mg/dL (70-110); POTASSIUM 3.2 mmol/L (3.5-5.1); SODIUM SERUM 134 mmol/L (136-145); UREA NITROGEN, BLOOD 22 mg/dL (7-18)
[2021-02-24 05:42] LABS: BASOPHILS % (AUTO) 0.5 % (0.0-2.0); EOSINOPHILS % (AUTO) 2.7 % (1.0-6.0); HEMOGLOBIN 11.9 g/dL (13.5-17.5); LYMPHOCYTES # (AUTO) 1.2 K/uL (1.0-4.8); LYMPHOCYTES % (AUTO) 16.5 % (22.0-44.0); MEAN CORPUSCULAR HEMOGLOBIN 31.2 pg (26.0-34.0); MEAN CORPUSCULAR VOLUME 92 fL (80-100); MONOCYTES # (AUTO) 0.5 K/uL (0.1-1.0); MONOCYTES % (AUTO) 7.5 % (2.0-9.0); NEUTROPHILS # (AUTO) 5.3 K/uL (1.8-7.7); NEUTROPHILS % (AUTO) 72.8 % (40.0-70.0); PLATELET COUNT (AUTO) 102 K/uL (150-450); RED BLOOD CELL COUNT(AUTO) 3.81 MIL/uL (4.50-5.90); RED CELL DISTRIBUTION WIDTH 14.5 % (11.5-14.5)
[2021-02-24] MEDS: DEXTROSE 5%-0.45% SODIUM CHL 1,000 ML IV SCH (06:25)
[2021-02-24] MEDS: ALBUTEROL SULFATE 2.5 MG/0.5 ML NEB SOLUTION NEB PRN ×5 (07:25→23:01)
[2021-02-24 08:00] VITALS: BP 142/74
[2021-02-24] MEDS: DOCUSATE SODIUM 100 MG CAPSULE PO SCH ×2 (09:00→20:35)
[2021-02-24] MEDS: MULTIVITAMINS, THERAPEUTIC 15 ML UDCUP NG SCH (09:00)
[2021-02-24] MEDS: CHOLECALCIFEROL (VIT D3) 2,000 UNITS [50 MCG] TABLET PO SCH (09:00)
[2021-02-24] MEDS ORDERED: SODIUM CHLORIDE 0.9% 250 ML IV ONE (09:03)
[2021-02-24] MEDS: ETHYL ALCOHOL 62% ANTISEPTIC NASAL INHALANT 0.6 ML AMPUL NASAL SCH ×2 (09:05→20:35)
[2021-02-24] MEDS: ENOXAPARIN SODIUM 80 MG/0.8 ML PF SYRINGE SQ SCH ×2 (09:05→20:35)
[2021-02-24] MEDS: DEXAMETHASONE SOD PHOS 4 MG/ML VIAL IVP SCH (09:05)
[2021-02-24] MEDS: THIAMINE 100 MG/ML 2 ML VIAL IVP SCH (09:06)
[2021-02-24] MEDS: FAMOTIDINE 10 MG/ML 2 ML VIAL IVP SCH (09:06)
[2021-02-24] MEDS: POTASSIUM CHL 10 MEQ/WATER 50 ML IV PRN ×10 (09:08→16:09)
[2021-02-24 12:00] VITALS: BP 132/70
[2021-02-24] MEDS: PROPOFOL 1000 MG/ISO-OSM 100 ML IV PRN (13:40)
[2021-02-24 16:00] VITALS: BP 139/92
[2021-02-24 17:48] LABS: COVID AG,FIA SOURCE NASAL SWAB
[2021-02-24] MEDS: IPRATROPIUM BROMIDE 0.5 MG/2.5 ML NEB SOLUTION NEB PRN ×2 (19:13→23:01)
[2021-02-24 20:00] VITALS: BP 131/77
[2021-02-24] MEDS: ACETAMINOPHEN 325 MG TABLET PO PRN (20:35)
[2021-02-24] MEDS: DIAZEPAM 5 MG TABLET PO SCH (20:35)
[2021-02-25] VITALS: BP 134/78
[2021-02-25] MEDS: DEXTROSE 5%-0.45% SODIUM CHL 1,000 ML IV SCH ×2 (00:42→18:04)
[2021-02-25 04:00] VITALS: BP 118/60
[2021-02-25] MEDS: ACETYLCYSTEINE 10% 100 MG/ML 4 ML NEB SOLUTION NEB SCH ×7 (04:12→22:57)
[2021-02-25] MEDS: IPRATROPIUM BROMIDE 0.5 MG/2.5 ML NEB SOLUTION NEB PRN ×6 (04:13→22:57)
[2021-02-25] MEDS: ALBUTEROL SULFATE 2.5 MG/0.5 ML NEB SOLUTION NEB PRN ×6 (04:13→22:57)
[2021-02-25 05:22] LABS: ANION GAP 9 mmol/L (8-16); CALCIUM, TOTAL 8.7 mg/dL (8.8-10.5); CARBON DIOXIDE 26 mmol/L (22-29); CHLORIDE 106 mmol/L (98-107); CREATININE 0.49 mg/dL (0.60-1.30); GLOMERULAR FILTR. RATE CALC > 60 mL/min (>60); GLUCOSE,RANDOM 99 mg/dL (70-110); POTASSIUM 3.4 mmol/L (3.5-5.1); SODIUM SERUM 141 mmol/L (136-145); UREA NITROGEN, BLOOD 14 mg/dL (7-18)
[2021-02-25 05:24] LABS: BASOPHILS % (AUTO) 0.8 % (0.0-2.0); EOSINOPHILS % (AUTO) 3.8 % (1.0-6.0); HEMATOCRIT 36.1 % (41-53); LYMPHOCYTES # (AUTO) 1.7 K/uL (1.0-4.8); LYMPHOCYTES % (AUTO) 22.4 % (22.0-44.0); MEAN CORPUSCULAR HEMOGLOBIN 30.8 pg (26.0-34.0); MEAN CORPUSCULAR HGB CONC 33.2 G/dL (31.0-37.0); MEAN CORPUSCULAR VOLUME 93 fL (80-100); MONOCYTES # (AUTO) 0.6 K/uL (0.1-1.0); MONOCYTES % (AUTO) 7.5 % (2.0-9.0); NEUTROPHILS # (AUTO) 4.9 K/uL (1.8-7.7); NEUTROPHILS % (AUTO) 65.5 % (40.0-70.0); PLATELET COUNT (AUTO) 121 K/uL (150-450); RED BLOOD CELL COUNT(AUTO) 3.89 MIL/uL (4.50-5.90); RED CELL DISTRIBUTION WIDTH 14.5 % (11.5-14.5)
[2021-02-25] MEDS: POTASSIUM CHL 10 MEQ/WATER 50 ML IV PRN ×3 (06:36→09:22)
[2021-02-25 08:00] VITALS: BP 126/77
[2021-02-25] MEDS: DIAZEPAM 5 MG TABLET PO SCH (09:09)
[2021-02-25] MEDS: DOCUSATE SODIUM 100 MG CAPSULE PO SCH ×2 (09:10→22:22)
[2021-02-25] MEDS: DEXAMETHASONE SOD PHOS 4 MG/ML VIAL IVP SCH (09:10)
[2021-02-25] MEDS: ONDANSETRON HCL 4 MG/2 ML VIAL IVP PRN (09:10)
[2021-02-25] MEDS: FAMOTIDINE 10 MG/ML 2 ML VIAL IVP SCH (09:11)
[2021-02-25] MEDS: ENOXAPARIN SODIUM 80 MG/0.8 ML PF SYRINGE SQ SCH ×2 (09:12→22:22)
[2021-02-25] MEDS: CHOLECALCIFEROL (VIT D3) 2,000 UNITS [50 MCG] TABLET PO SCH (09:12)
[2021-02-25] MEDS: THIAMINE 100 MG/ML 2 ML VIAL IVP SCH (09:12)
[2021-02-25] MEDS: ETHYL ALCOHOL 62% ANTISEPTIC NASAL INHALANT 0.6 ML AMPUL NASAL SCH ×2 (09:13→22:22)
[2021-02-25] MEDS: MULTIVITAMINS, THERAPEUTIC 15 ML UDCUP NG SCH (09:13)
[2021-02-25] MEDS ORDERED: 0.9% SODIUM CHLORIDE 5 ML NEB SOLUTION NEB ONE ×2 (09:42→12:26)
[2021-02-25 12:00] VITALS: BP 127/77
[2021-02-25 16:00] VITALS: BP 129/81
[2021-02-25 20:00] VITALS: BP 161/103
[2021-02-26] VITALS: BP 108/33
[2021-02-26 01:50] VITALS: BP 122/85
[2021-02-26] MEDS: ACETYLCYSTEINE 10% 100 MG/ML 4 ML NEB SOLUTION NEB SCH ×4 (03:08→16:08)
[2021-02-26] MEDS: ALBUTEROL SULFATE 2.5 MG/0.5 ML NEB SOLUTION NEB PRN ×4 (03:09→16:08)
[2021-02-26 06:10] VITALS: BP 108/68
[2021-02-26 07:16] VITALS: BP 110/65
[2021-02-26] MEDS ORDERED: 0.9% SODIUM CHLORIDE 5 ML NEB SOLUTION NEB ONE (08:11)
[2021-02-26] MEDS: IPRATROPIUM BROMIDE 0.5 MG/2.5 ML NEB SOLUTION NEB PRN ×3 (08:13→16:08)
[2021-02-26] MEDS: CHOLECALCIFEROL (VIT D3) 2,000 UNITS [50 MCG] TABLET PO SCH (08:15)
[2021-02-26] MEDS: DIAZEPAM 5 MG TABLET PO SCH (08:15)
[2021-02-26] MEDS: DOCUSATE SODIUM 100 MG CAPSULE PO SCH (08:16)
[2021-02-26] MEDS: DEXTROSE 5%-0.45% SODIUM CHL 1,000 ML IV SCH (08:52)
[2021-02-26] MEDS: THIAMINE 100 MG/ML 2 ML VIAL IVP SCH (08:53)
[2021-02-26] MEDS: FAMOTIDINE 10 MG/ML 2 ML VIAL IVP SCH (08:54)
[2021-02-26] MEDS: ENOXAPARIN SODIUM 80 MG/0.8 ML PF SYRINGE SQ SCH (08:55)
[2021-02-26] MEDS ORDERED: DEXAMETHASONE SOD PHOS 4 MG/ML VIAL IVP SCH (09:00)
[2021-02-26] MEDS: MULTIVITAMINS, THERAPEUTIC 15 ML UDCUP NG SCH (10:12)
[2021-02-26] MEDS: ETHYL ALCOHOL 62% ANTISEPTIC NASAL INHALANT 0.6 ML AMPUL NASAL SCH (10:12)
[2021-02-26 11:01] VITALS: BP 128/81
[2021-02-26 11:46] LABS: BASOPHILS % (AUTO) 0.5 % (0.0-2.0); EOSINOPHILS % (AUTO) 1.9 % (1.0-6.0); HEMATOCRIT 36.8 % (41-53); HEMOGLOBIN 12.4 g/dL (13.5-17.5); LYMPHOCYTES # (AUTO) 0.8 K/uL (1.0-4.8); LYMPHOCYTES % (AUTO) 7.6 % (22.0-44.0); MEAN CORPUSCULAR HEMOGLOBIN 31.2 pg (26.0-34.0); MEAN CORPUSCULAR HGB CONC 33.7 G/dL (31.0-37.0); MEAN CORPUSCULAR VOLUME 92 fL (80-100); MONOCYTES # (AUTO) 0.4 K/uL (0.1-1.0); MONOCYTES % (AUTO) 4.2 % (2.0-9.0); PLATELET COUNT (AUTO) 141 K/uL (150-450); RED BLOOD CELL COUNT(AUTO) 3.99 MIL/uL (4.50-5.90); RED CELL DISTRIBUTION WIDTH 14.4 % (11.5-14.5)
[2021-02-26 11:47] LABS: NEUTROPHILS % (AUTO) 85.8 % (40.0-70.0)
[2021-02-26 11:54] LABS: ANION GAP 10 mmol/L (8-16); CALCIUM, TOTAL 8.9 mg/dL (8.8-10.5); CARBON DIOXIDE 24 mmol/L (22-29); CHLORIDE 104 mmol/L (98-107); CREATININE 0.52 mg/dL (0.60-1.30); GLOMERULAR FILTR. RATE CALC > 60 mL/min (>60); GLUCOSE,RANDOM 168 mg/dL (70-110); POTASSIUM 3.7 mmol/L (3.5-5.1); SODIUM SERUM 138 mmol/L (136-145); UREA NITROGEN, BLOOD 16 mg/dL (7-18)
[2021-02-26 15:03] VITALS: BP 133/75
== END 2021-02-26 19:20 | disposition short-term general hospital (02) | DRG 207 ==
LOC: EMS 12:44 → 5N 01-31 06:03 → ICU 02-02 20:15 → 5N 02-25 23:00
PROVIDERS: ADMIT Internal Medicine; ATTEND Internal Medicine
PROC: XW033E5 Introduction of Remdesivir Anti-infective into Peripheral Vein, Percutaneous Approach, New Technology Group 5 (ICD-10-PCS; 2021-01-31)
PROC: 05HB33Z Insertion of Infusion Device into Right Basilic Vein, Percutaneous Approach (ICD-10-PCS; 2021-02-07)
PROC: 5A1955Z Respiratory Ventilation, Greater than 96 Consecutive Hours (ICD-10-PCS; principal; 2021-02-08)
PROC: 0BH17EZ Insertion of Endotracheal Airway into Trachea, Via Natural or Artificial Opening (ICD-10-PCS; 2021-02-08)
PROC: XW033H5 Introduction of Tocilizumab into Peripheral Vein, Percutaneous Approach, New Technology Group 5 (ICD-10-PCS; 2021-02-08)
DX: U07.1 COVID-19 (principal); J12.82 Pneumonia due to coronavirus disease 2019; J80 Acute respiratory distress syndrome; D68.59 Other primary thrombophilia; I82.441 Acute embolism and thrombosis of right tibial vein; I82.451 Acute embolism and thrombosis of right peroneal vein; Z99.11 Dependence on respirator [ventilator] status; D72.810 Lymphocytopenia; I10 Essential (primary) hypertension; D69.6 Thrombocytopenia, unspecified; E66.9 Obesity, unspecified; E87.6 Hypokalemia; R13.10 Dysphagia, unspecified; I82.462 Acute embolism and thrombosis of left calf muscular vein; F41.1 Generalized anxiety disorder; Z79.899 Other long term (current) drug therapy; Z68.28 Body mass index [BMI] 28.0-28.9, adult
CPT/HCPCS: 36245; 36569; 36600; 70450; 71045; 76937; 80048; 80053; 81001; 82550; 82728; 82805; 82962; 83605; 83735; 83880; 84100; 84132; 84145; 84484; 85007; 85025; 85027; 85379; 85610; 85730; 86140; 87040; 87070; 87081; 87205; 87449; 87899; 92526; 92610; 93005; 93970; 94002; 94003; 94640; 94760; 97162; 97167; 97535; 99285; G0238; G0378; J0456; J0696; J0712; J1100; J1644; J1650; J2250; J2405; J2704; J3411; J3480; J3490; J3535; J7040; J7050; J7060; J7120; J8540; Q9967; 36415-L1; 36415-TC; J7613; U0003